=== PATIENT | male | born 1970 | race Caucasian/White ===

== ENCOUNTER 2016-04-01 12:07 | Emergency (ER) | payer OTHER ==
[2016-04-01 12:16] VITALS: TEMP 99.7; BMI 29.9
[2016-04-01] MEDS ORDERED: IBUPROFEN 400 MG TABLET (FP) PO ONE ×3 (12:20→14:09)
--- NOTE | 2016-04-01 13:58 | PDOC ---
History of Present Illness - General Chief Complaint: Abscess Boil Stated Complaint: BODY ACHES, FEVER Time Seen by Provider: 04/01/16 12:19 History Source: Patient Exam Limitations: No Limitations - History of Present Illness Initial Comments: CHIEF COMPLAINT: 45 y/o febrile male with no significant PMH c/o fever and pain under his right arm for the past 5 days. HISTORY OF PRESENT ILLNESS: The patient states he started feeling a bump under his right underarm 5 days ago and then began with a fever. He states he's been taking Tylenol every 6 hours for the fever. He denies chills, ALONZO, n/v/d, CP, SOB, drainage from affected area, redness/streaking of affected area. Vital signs on arrival are notable for pulse of 98 secondary to temp of 99.7. REVIEW OF SYSTEMS: GENERAL/CONSTITUTIONAL: + fever. No chills. No weakness. No weight change. HEAD, EYES, EARS, NOSE AND THROAT: No change in vision. No ear pain or discharge. No sore throat. CARDIOVASCULAR: No chest pain or shortness of breath. RESPIRATORY: No cough, wheezing, or hemoptysis. GASTROINTESTINAL: No nausea, vomiting, diarrhea, constipation. GENITOURINARY: No dysuria, frequency, or change in urination. MUSCULOSKELETAL: +painful swelling to right underarm. No neck or back pain. SKIN: No rash or easy bruising. NEUROLOGIC: No headache, vertigo, loss of consciousness, or loss of sensation. PHYSICAL EXAM: GENERAL: The patient is awake, alert, and fully oriented, in no acute distress. He is well appearing, ambulatory, in NAD or obvious discomfort. HEAD: Normal with no signs of trauma. ENT: Pupils equal, round and reactive to light, extraocular movements intact, sclera anicteric, conjunctiva clear. Neck supple. LUNGS: Clear to auscultation bilaterally. Normal excursion. No respiratory distress or use of accessory muscles. CV: RRR, S1/S2, no MRG. Cap refill < 2 sec. ABDOMEN: Soft, non-distended, non-tender even to deep palpation, no hepatomegaly or splenomegaly, no masses. EXTREMITIES: Normal range of motion, no edema. AXILLA: No obvious swelling or erythema to right axilla. Hard, painful abscess found under the skin of the right axilla. NEUROLOGICAL: Normal speech, normal gait. CN II-XII grossly intact. PSYCH: Normal mood, normal affect. SKIN: Warm, dry, normal turgor, no rashes or lesions noted. Past History - Past Medical History Allergies/Adverse Reactions: Allergies Allergy/AdvReac Type Severity Reaction Status Date / Time No Known Allergies Allergy Verified 04/01/16 12:16 Home Medications: Ambulatory Orders NK [No Known Home Medication] 04/01/16 Diabetes: Yes Liver Disease: Yes (ENLARGED) - Psycho/Social/Smoking Cessation Hx Anxiety: No Suicidal Ideation: No Smoking Status: Yes Smoking History: Never smoked Number of Cigarettes Smoked Daily: 0 Information on smoking cessation initiated: No *Physical Exam - Vital Signs Last Vital Signs Temp Pulse Resp BP Pulse Ox 99.7 F H 98 H 18 133/80 98 04/01/16 12:13 04/01/16 12:13 04/01/16 12:13 04/01/16 12:13 04/01/16 12:13 ED Treatment Course - LABORATORY CBC & Chemistry Diagram: 04/01/16 14:10 04/01/16 14:10 Medical Decision Making - Medical Decision Making A/P: 45 y/o febrile male with possible deep right axilla abscess. Plan is as follows: 1. Labs 2. PO motrin 3. Ultrasound right axilla Soft tissue ultrasound IMPRESSION: Several enlarged right axillary lymph nodes with a fatty hilum. The most prominent lymph node demonstrates a short axis diameter of approximately 2cm. Ordered CXR CXR IMPRESSION: No acute pathology. No signs of infiltrate or mass. The patient's vital signs have improved. Informed him of the results and diagnosis of viral illness. I informed him that the enlarged lymph nodes are unusual and he would need to f/u with his PCP, Dr. Stephanie Knapp, within 1 week for follow up. I informed him that it could indicate something more serious, such as cancer. He informed me he would definitely follow up. I suggested he continue taking tylenol for fever and add Motrin for pain. Instructed him to return to the ER with any worsening or concerning symptoms. The patient verbalizes understanding of all instructions, has no further questions and is awaiting discharge. *DC/Admit/Observation/Transfer Diagnosis at time of Disposition: Lymphadenitis, acute, Viral illness - Discharge Dispostion Disposition: HOME Condition at time of disposition: Improved - Referrals Referrals: Stephanie Knapp [Primary Care Provider] - (Please follow up this week) - Patient Instructions Printed Discharge Instructions: DI for Lymphadenopathy, DI for Viral Syndrome Additional Instructions: Discharge Instructions: -Take 500mg of Tylenol every 4 hours for fever -Take 600mg of Motrin every 6 hours for pain with food -Drink plenty of fluids -Get plenty of rest -Call your Dr. Knapp tomorrow to schedule follow up appointment as soon as possible -Your lymph nodes are enlarged, which is unusual for someone your age and could indicate something more serious such as cancer, so it is imperative you follow up with your doctor as soon as possible. Print Language: [place] - Post Discharge Activity Work/School Note: Back to Work
[2016-04-01 14:31] LABS: BASOPHIL 0.7 % (0-2.0); MCH 30.8 pg (25.7-33.7); MCHC 34.9 g/dl (32.0-35.9); MEAN CELL VOLUME 88.5 fl (80-96); MEAN PLT VOLUME 10.8 fl (7.5-11.1); NEUTROPHILS 66.5 % (42.8-82.8); PLATELET COUNT 90 K/MM3 (134-434); RDW 12.2 % (11.9-15.9); WHITE BLOOD COUNT 5.6 K/mm3 (4.0-10.0)
[2016-04-01 14:54] LABS: ANION GAP 12 (8-16); BILIRUBIN,TOTAL 0.6 mg/dL (0.2-1.0); CALCIUM 8.5 mg/dL (8.5-10.1); CO2 27 mmol/L (21-32); CREATININE 0.8 mg/dL (0.7-1.3); GLUCOSE,RANDOM 108 mg/dL (74-106); SGOT/AST 32 U/L (15-37); SGPT/ALT 63 U/L (12-78); TOT PROT 7.1 g/dl (6.4-8.2)
[2016-04-01 14:55] LABS: ALK PHOS 82 U/L (45-117)
[2016-04-01 17:27] VITALS: BP 103/65; PULSE 80
== END 2016-04-01 17:28 | disposition home or self-care (01) ==
LOC: JER 12:07 → JERFT 12:07 → JER 17:28
DX: L04.2 Acute lymphadenitis of upper limb (principal)
CPT/HCPCS: 36415; 71020-TC; 76882; 80053; 85025; 99282-25

== ENCOUNTER 2018-04-04 10:27 | Emergency (ER) | payer OTHER ==
[2018-04-04 10:36] VITALS: TEMP 97.8; BMI 32.4
--- NOTE | 2018-04-04 11:22 | PDOC ---
*Physical Exam - Vital Signs Last Vital Signs Temp Pulse Resp BP Pulse Ox 97.8 F 88 16 171/90 H 100 04/04/18 10:32 04/04/18 10:32 04/04/18 10:32 04/04/18 10:32 04/04/18 10:32 ED Treatment Course - LABORATORY CBC & Chemistry Diagram: 04/04/18 12:40 04/04/18 12:40 Medical Decision Making - Medical Decision Making 04/04/18 11:22 Pt seen by Midlevel Provider under my direct supervision Ancillary studies reviewed I agree with plan as outlined by Midlevel Provider *DC/Admit/Observation/Transfer Diagnosis at time of Disposition: Abdominal pain, Acute hemorrhoid - Discharge Dispostion Disposition: HOME Condition at time of disposition: Stable - Prescriptions Prescriptions: Polyethylene Glycol 3350 [Miralax (For Bowel Prep) -] 17 gm PO DAILY #1 bottle - Referrals Referrals: Kwesi Rahman MD [Primary Care Provider] - Jef Rivera MD [Staff Physician] - - Patient Instructions Printed Discharge Instructions: DI for Hemorrhoids, DI for Abdominal Pain-Adult Additional Instructions: Your work up for abdominal pain and blood in the stool was normal today Your CT of your abdomen was normal. You most likely have a hemorrhoid causing your bleeding Please follow up with both your primary care doctor and flow manager. A referral has been provided to you. Return to the ED for any new or worsening symptoms Print Language: FRISIAN - Post Discharge Activity Forms/Work/School Notes: Back to Work
--- NOTE | 2018-04-04 12:07 | PDOC ---
History of Present Illness - General Chief Complaint: Pain Stated Complaint: ABD PAIN Time Seen by Provider: 04/04/18 10:50 History Source: Patient Exam Limitations: No Limitations Past History - Travel Traveled outside of the country in the last 30 days: No Close contact w/someone who was outside of country & ill: No - Past Medical History Allergies/Adverse Reactions: Allergies Allergy/AdvReac Type Severity Reaction Status Date / Time No Known Allergies Allergy Verified 04/04/18 10:35 Home Medications: Ambulatory Orders NK [No Known Home Medication] 04/01/16 COPD: No Diabetes: Yes Liver Disease: Yes (ENLARGED) - Suicide/Smoking/Psychosocial Hx Smoking Status: Yes Smoking History: Unknown if ever smoked Number of Cigarettes Smoked Daily: 0 Hx Alcohol Use: No Drug/Substance Use Hx: No Review of Systems - Review of Systems Able to Perform ROS?: Yes Comments:: 04/04/18 15:18 CONSTITUTIONAL: Absent: fever, chills, diaphoresis, generalized weakness, malaise, loss of appetite HEENT: Absent: rhinorrhea, nasal congestion, throat pain, throat swelling, difficulty swallowing, mouth swelling, ear pain, eye pain, visual Changes CARDIOVASCULAR: Absent: chest pain, loss of consciousness, palpitations, irregular heart rate, peripheral edema RESPIRATORY: Absent: cough, shortness of breath, dyspnea with exertion, orthopnea, wheezing, stridor, hemoptysis GASTROINTESTINAL: Present: abdominal pain, blood in the stool Absent:abdominal distension, nausea , vomiting, diarrhea, constipation, melena, hematochezia GENITOURINARY: Absent: dysuria, frequency, urgency, hesitancy, hematuria, flank pain, genital pain MUSCULOSKELETAL: Absent: myalgia, arthralgia, joint swelling SKIN: Absent: rash, itching, pallor HEMATOLOGIC/IMMUNOLOGIC: Absent: easy bleeding, easy bruising, lymphadenopathy, frequent infections ENDOCRINE: Absent: unexplained weight gain, unexplained weight loss, heat intolerance, cold intolerance NEUROLOGIC: Absent: headache, focal weakness or paresthesias, dizziness, unsteady gait, seizure, mental status changes, bladder or bowel incontinence PSYCHIATRIC: Absent: anxiety, depression, suicidal or homicidal ideation, hallucinations. 04/04/18 15:18 Is the patient limited Polish proficient: No *Physical Exam - Vital Signs Last Vital Signs Temp Pulse Resp BP Pulse Ox 97.8 F 88 16 171/90 H 100 04/04/18 10:32 04/04/18 10:32 04/04/18 10:32 04/04/18 10:32 04/04/18 10:32 - Physical Exam Comments: 04/04/18 15:18 GENERAL: Well developed, well nourished. Awake and alert. No acute distress. HEENT: Normocephalic, atraumatic. PERRLA, EOMI. No conjunctival pallor. Sclera are non- icteric. Moist mucous membranes. Oropharynx is clear. NECK: Supple. Full ROM. No JVD. Carotid pulses 2+ and symmetric, without bruits. No thyromegaly. No lymphadenopathy. CARDIOVASCULAR: Regular rate and rhythm. No murmurs, rubs, or gallops. Distal pulses are 2+ and symmetric. PULMONARY: No evidence of respiratory distress. Lungs clear to auscultation bilaterally. No wheezing, rales or rhonchi. ABDOMINAL: TTP of the RLQ, suprapubic area. Soft. Non-tender. Non-distended. No rebound or guarding. No organomegaly. Normoactive bowel sounds. MUSCULOSKELETAL Normal range of motion at all joints. No bony deformities or tenderness. No CVA tenderness. EXTREMITIES: No cyanosis. No clubbing. No edema. No calf tenderness. SKIN: Warm and dry. Normal capillary refill. No rashes. No jaundice. NEUROLOGICAL: Alert, awake, appropriate. Cranial nerves 2-12 intact. No deficits to light touch and temperature in face, upper extremities and lower extremities. No motor deficits in the in face, upper extremities and lower extremities. Normoreflexic in the upper and lower extremities. Normal speech. Toes are down- going bilaterally. Gait is normal without ataxia. PSYCHIATRIC: Cooperative. Good eye contact. Appropriate mood and affect. Moderate Sedation - Procedure Monitoring Vital Signs: Procedure Monitoring Vital Signs Temperature 97.8 F 04/04/18 10:32 Pulse Rate 88 04/04/18 10:32 Respiratory Rate 16 04/04/18 10:32 Blood Pressure 171/90 H 04/04/18 10:32 O2 Sat by Pulse Oximetry (%) 100 04/04/18 10:32 ED Treatment Course - LABORATORY CBC & Chemistry Diagram: 04/04/18 12:40 04/04/18 12:40 *DC/Admit/Observation/Transfer Diagnosis at time of Disposition: Acute hemorrhoid Abdominal pain Qualifiers: Abdominal location: right lower quadrant Qualified Code(s): R10.31 - Right lower quadrant pain - Discharge Dispostion Disposition: HOME Condition at time of disposition: Stable Decision to Admit order: No - Referrals Referrals: Kwesi Rahman MD [Primary Care Provider] - Jef Rivera MD [Staff Physician] - - Patient Instructions Printed Discharge Instructions: DI for Abdominal Pain-Adult, DI for Hemorrhoids Additional Instructions: Your work up for abdominal pain and blood in the stool was normal today Your CT of your abdomen was normal. 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 A referral has been provided to you. Return to the ED for any new or worsening symptoms - Post Discharge Activity Forms/Work/School Notes: Back to Work
[2018-04-04 12:52] LABS: BASO % 0.7 % (0-2.0); EOS % 1.7 % (0-4.5); HEMATOCRIT 45.9 % (35.4-49); HEMOGLOBIN 16.5 GM/dL (11.7-16.9); LYMPH % 18.4 % (8-40); MCH 32.5 pg (25.7-33.7); MCHC 36.1 g/dl (32.0-35.9); MEAN CELL VOLUME 90.3 fl (80-96); MEAN PLT VOLUME 11.9 fl (7.5-11.1); MONO % 8.1 % (3.8-10.2); NEUT % 71.1 % (42.8-82.8); PLATELET COUNT 119 K/MM3 (134-434); RBC 5.08 M/mm3 (4.00-5.60); WHITE BLOOD COUNT 5.5 K/mm3 (4.0-10.0)
[2018-04-04 13:05] LABS: INR 1.08 (0.83-1.09); PROTHROMBIN TIME (PATIENT) 12.8 SEC (9.7-13.0)
[2018-04-04 13:20] LABS: ALBUMIN 4.6 g/dl (3.4-5.0); ALK PHOS 110 U/L (45-117); ANION GAP 5 MMOL/L (8-16); BILIRUBIN,TOTAL 0.4 mg/dL (0.2-1); BLOOD UREA NITROGEN 8 mg/dL (7-18); CHLORIDE 104 mmol/L (98-107); CO2 29 mmol/L (21-32); CREATININE 0.8 mg/dL (0.55-1.3); GLUCOSE,RANDOM 111 mg/dL (74-106); POTASSIUM 4.2 mmol/L (3.5-5.1); SGOT/AST 37 U/L (15-37); SGPT/ALT 80 U/L (13-61); SODIUM 137 mmol/L (136-145); TOT PROT 7.9 g/dl (6.4-8.2)
[2018-04-04 13:33] LABS: URINE APPEARANCE CLEAR; URINE BILIRUBIN NEGATIVE (<2.0 mg/dL); URINE COLOR LTYELLOW; URINE GLUCOSE (UA) NEGATIVE (NEGATIVE); URINE KETONE NEGATIVE (NEGATIVE); URINE LEUK ESTERASE NEGATIVE (NEGATIVE); URINE NITRITE NEGATIVE (NEGATIVE); URINE PROTEIN NEGATIVE (NEGATIVE); URINE UROBILINOGEN NEGATIVE mg/dL (0.2-1.0)
[2018-04-04 15:49] VITALS: BP 136/84; PULSE 60
== END 2018-04-04 15:53 | disposition home or self-care (01) ==
LOC: JER 10:27
DX: K64.9 Unspecified hemorrhoids (principal)
CPT/HCPCS: 36415; 74177-TC; 80053; 81003; 82272; 85025; 85610; 99281-25

== ENCOUNTER 2019-04-06 12:09 | Day surgery (SDC) | payer OTHER ==
[2019-04-06 13:38] VITALS: BMI 29.2
[2019-04-06 17:08] VITALS: TEMP 98.5
[2019-04-06 17:09] VITALS: PULSE 75
[2019-04-06 17:12] VITALS: BP 100/69
== END 2019-04-06 17:20 | disposition home or self-care (01) ==
LOC: JASU-ENDO 12:09
PROVIDERS: ATTEND Internal Medicine Gastroenterology
PROC: 0D7P8ZZ Dilation of Rectum, Via Natural or Artificial Opening Endoscopic (ICD-10-PCS; principal; 2019-04-06 13:45)
DX: K91.89 Other postprocedural complications and disorders of digestive system (principal); K62.4 Stenosis of anus and rectum; Z85.048 Personal history of other malignant neoplasm of rectum, rectosigmoid junction, and anus; Z92.3 Personal history of irradiation; Z80.0 Family history of malignant neoplasm of digestive organs

== ENCOUNTER 2020-05-08 15:35 | Inpatient (IN) | payer OTHER ==
[2020-05-08] MEDS ORDERED: ONDANSETRON 4 MG/2 ML VIAL IVPUSH ONE (17:06)
[2020-05-08] MEDS ORDERED: ACETAMINOPHEN 1000 MG/100 ML VIAL (NON FORMULARY) IVPB ONE (17:06)
[2020-05-08] MEDS ORDERED: SODIUM CHLORIDE 1,000 ML IV STA (17:06)
[2020-05-08] MEDS ORDERED: FAMOTIDINE 20 MG/50 ML IVPB 20 MG/50 ML MG IVPB ONE ×2 (17:06→17:29)
[2020-05-08] MEDS ORDERED: ONDANSETRON 4 MG/2 ML VIAL ONE (17:28)
[2020-05-08] MEDS ORDERED: ACETAMINOPHEN INJECTION 100 ML IVPB ONE (17:28)
[2020-05-08 18:04] LABS: BASO % 0.5 % (0-2.0); HEMATOCRIT 44.5 % (35.4-49); HEMOGLOBIN 15.4 GM/dL (11.7-16.9); LYMPH % 3.6 % (8-40); MCH 31.7 pg (25.7-33.7); MCHC 34.5 g/dl (32.0-35.9); MEAN CELL VOLUME 91.7 fl (80-96); MONO % 6.5 % (3.8-10.2); NEUT % 89.4 % (42.8-82.8); PLATELET COUNT 128 K/MM3 (134-434); RBC 4.85 M/mm3 (4.00-5.60); RDW 12.6 % (11.9-15.9); WHITE BLOOD COUNT 11.9 K/mm3 (4.0-10.0)
[2020-05-08 18:12] LABS: INR 1.15 (0.83-1.09); PROTHROMBIN TIME (PATIENT) 13.9 SEC (9.7-13.0)
[2020-05-08 18:25] LABS: CHLORIDE 106 mmol/L (98-107); POTASSIUM 3.7 mmol/L (3.5-5.1); SODIUM 138 mmol/L (136-145)
[2020-05-08 18:27] LABS: ALBUMIN 4.2 g/dl (3.4-5.0); CALCIUM 9.1 mg/dL (8.5-10.1)
[2020-05-08 18:28] LABS: ANION GAP 8 MMOL/L (8-16); BLOOD UREA NITROGEN 9.2 mg/dL (7-18); CO2 24 mmol/L (21-32); GLUCOSE,RANDOM 136 mg/dL (74-106)
[2020-05-08 18:31] LABS: CREATININE 0.6 mg/dL (0.55-1.3); SGOT/AST 21 U/L (15-37); SGPT/ALT 28 U/L (13-61)
[2020-05-08 18:32] LABS: BILIRUBIN,TOTAL 0.6 mg/dL (0.2-1); TOT PROT 7.5 g/dl (6.4-8.2)
[2020-05-08 18:33] LABS: ALK PHOS 102 U/L (45-117)
[2020-05-08 21:20] LABS: URINE APPEARANCE CLEAR; URINE BILIRUBIN NEGATIVE (NEGATIVE); URINE COLOR YELLOW; URINE GLUCOSE (UA) NEGATIVE (NEGATIVE); URINE KETONE TRACE (NEGATIVE); URINE LEUK ESTERASE NEGATIVE (NEGATIVE); URINE NITRITE NEGATIVE (NEGATIVE); URINE PROTEIN NEGATIVE (NEGATIVE); URINE UROBILINOGEN 0.2 mg/dL (0.2-1.0)
[2020-05-08 21:30] LABS: LIPASE 292 U/L (73-393)
[2020-05-08] MEDS ORDERED: CEFTRIAXONE 1 GM in DEXTROSE 5%-WATER - 50 ML IVPB ONE (22:30)
[2020-05-08] MEDS ORDERED: PANTOPRAZOLE SODIUM 40 MG VIAL IVPUSH ONE (22:30)
[2020-05-08] MEDS ORDERED: HEPARIN NA (PORCINE) 5,000 UNITS/ML 1ML VIAL SQ ONE (22:35)
[2020-05-08] MEDS ORDERED: morphine CARPU-JECT 4 MG/1 ML DISP.SYRIN IVPUSH ONE (22:42)
[2020-05-08] MEDS ORDERED: HEPARIN NA (PORCINE) 5,000 UNITS/ML 1ML VIAL ONE (22:44)
[2020-05-08] MEDS ORDERED: CEFTRIAXONE 1 GM/50 ML BAG ONE (22:44)
[2020-05-08] MEDS ORDERED: PANTOPRAZOLE SODIUM 40 MG/100 ML BAG IVPB ONE (22:44)
[2020-05-08] MEDS ORDERED: morphine SULFATE 4 MG/ML VIAL ONE (23:42)
[2020-05-08] MEDS ORDERED: ONDANSETRON 4 MG/2 ML VIAL IVPUSH PRN (23:56)
[2020-05-09] MEDS: DEXTROSE 5%-NORMAL SALINE 1,000 ML IV SCH (05:00)
[2020-05-09 06:49] LABS: BASO % 0.5 % (0-2.0); EOS % 0.8 % (0-4.5); HEMATOCRIT 38.3 % (35.4-49); HEMOGLOBIN 13.4 GM/dL (11.7-16.9); LYMPH % 12.2 % (8-40); MCH 32.2 pg (25.7-33.7); MCHC 34.9 g/dl (32.0-35.9); MEAN CELL VOLUME 92.3 fl (80-96); MEAN PLT VOLUME 11.5 fl (7.5-11.1); MONO % 12.5 % (3.8-10.2); PLATELET COUNT 106 K/MM3 (134-434); POTASSIUM 3.4 mmol/L (3.5-5.1); RBC 4.15 M/mm3 (4.00-5.60); RDW 12.8 % (11.9-15.9); WHITE BLOOD COUNT 4.5 K/mm3 (4.0-10.0)
[2020-05-09 06:57] LABS: BLOOD UREA NITROGEN 9.9 mg/dL (7-18); MAGNESIUM 2.3 mg/dL (1.8-2.4)
[2020-05-09 06:59] LABS: CREATININE 0.6 mg/dL (0.55-1.3)
[2020-05-09 07:00] LABS: PHOSPHOROUS 3.2 mg/dL (2.5-4.9)
[2020-05-09 07:01] LABS: BILIRUBIN,TOTAL 0.6 mg/dL (0.2-1)
[2020-05-09 07:06] LABS: ALBUMIN 3.4 g/dl (3.4-5.0)
[2020-05-09] MEDS ORDERED: ENOXAPARIN NA (PORCINE) 40 MG/0.4 ML DISP.SYRIN SQ ONE (10:51)
[2020-05-09] MEDS: ENOXAPARIN NA (PORCINE) 40 MG/0.4 ML DISP.SYRIN SQ SCH (10:52)
[2020-05-09 14:15] VITALS: BMI 29.9
[2020-05-09] MEDS: ACETAMINOPHEN 1000 MG/100 ML VIAL (NON FORMULARY) IVPB PRN ×2 (14:24→19:54)
[2020-05-10] MEDS ORDERED: ACETAMINOPHEN 325 MG TABLET (FP) ONE (01:16)
[2020-05-10 09:29] LABS: POTASSIUM 3.6 mmol/L (3.5-5.1)
[2020-05-10 09:38] LABS: BLOOD UREA NITROGEN 7.8 mg/dL (7-18); CALCIUM 8.3 mg/dL (8.5-10.1); MAGNESIUM 2.4 mg/dL (1.8-2.4)
[2020-05-10 09:41] LABS: CREATININE 0.6 mg/dL (0.55-1.3)
[2020-05-10 09:42] LABS: PHOSPHOROUS 2.7 mg/dL (2.5-4.9)
[2020-05-10] MEDS: DEXTROSE 5%-NORMAL SALINE 1,000 ML IV SCH ×2 (10:11→19:35)
[2020-05-10] MEDS: ENOXAPARIN NA (PORCINE) 40 MG/0.4 ML DISP.SYRIN SQ SCH (11:44)
[2020-05-10] MEDS ORDERED: POLYETHYLENE GLYCOL 3350 119 GM BTL PO ONE (19:38)
[2020-05-10] MEDS ORDERED: SIMETHICONE 40 MG/0.6 ML BOTTLE PO ONE (19:45)
[2020-05-11] MEDS: DEXTROSE 5%-NORMAL SALINE 1,000 ML IV SCH ×2 (07:52→10:07)
[2020-05-11] MEDS: ENOXAPARIN NA (PORCINE) 40 MG/0.4 ML DISP.SYRIN SQ SCH (10:07)
[2020-05-11] MEDS ORDERED: SIMETHICONE 80 MG TAB.CHEW (FP) PO ONE (20:21)
[2020-05-12 09:31] VITALS: BP 111/69; PULSE 67; TEMP 98.8
[2020-05-12] MEDS: ENOXAPARIN NA (PORCINE) 40 MG/0.4 ML DISP.SYRIN SQ SCH (10:30)
== END 2020-05-12 11:53 | disposition home or self-care (01) | DRG 247 ==
LOC: JER 15:35 → JERBED 22:50 → J5S 05-09 12:00
PROVIDERS: ADMIT Internal Medicine; ATTEND Internal Medicine
PROC: 0D9670Z Drainage of Stomach with Drainage Device, Via Natural or Artificial Opening (ICD-10-PCS; principal; 2020-05-08)
DX: K56.609 Unspecified intestinal obstruction, unspecified as to partial versus complete obstruction (principal); J98.11 Atelectasis; K76.0 Fatty (change of) liver, not elsewhere classified; I10 Essential (primary) hypertension; D69.6 Thrombocytopenia, unspecified; D72.829 Elevated white blood cell count, unspecified; R11.2 Nausea with vomiting, unspecified; R19.7 Diarrhea, unspecified; Z85.048 Personal history of other malignant neoplasm of rectum, rectosigmoid junction, and anus
CPT/HCPCS: 36415; 71045-TC-FY; 74019-TC-FY; 74177-TC; 80048; 80053; 81003; 82550; 83605; 83690; 83735; 84100; 84484; 85025; 85610; 86850; 86900; 86901; 87086; 93005; 93010; 99285-25; C9803; J0131; J1644; Q9967; U0003; U0005

== ENCOUNTER 2023-09-02 05:49 | Day surgery (SDC) | payer OTHER ==
[2023-08-30 10:59] VITALS: BMI 28.8
[2023-09-02] MEDS ORDERED: PROPOFOL 60 ML ONE (07:59)
[2023-09-02] MEDS ORDERED: MIDAZOLAM HCL 2 MG/2 ML SINGLE DOSE VIAL ONE (08:00)
[2023-09-02] MEDS ORDERED: ONDANSETRON 4 MG/2 ML VIAL ONE (08:01)
[2023-09-02] MEDS ORDERED: DEXAMETHASONE SOD PHOSPHATE 4 MG/1 ML VIAL ONE (08:01)
[2023-09-02] MEDS ORDERED: ceFAZolin SODIUM 1 GM VIAL ONE (08:01)
[2023-09-02] MEDS ORDERED: METOCLOPRAMIDE HCL INJECTION 10 MG/2 ML VIAL ONE (08:01)
[2023-09-02] MEDS ORDERED: HEPARIN NA (PORCINE) 5,000 UNITS/ML 1ML VIAL ONE (08:04)
[2023-09-02] MEDS ORDERED: SODIUM CHLORIDE 0.9% P/F 10 ML VIAL IJ ONE (08:07)
[2023-09-02] MEDS ORDERED: SUCCINYLCHOLINE CHLORIDE 200 MG/10 ML SYRINGE ONE (08:07)
[2023-09-02] MEDS: ceFAZolin SODIUM 1 GM VIAL IVPB ONE ×2 (08:30)
[2023-09-02] MEDS: HEPARIN NA (PORCINE) 5,000 UNITS/ML 1ML VIAL SQ ONE (08:32)
[2023-09-02] MEDS: BUPIVACAINE HCL/PF 0.25% (2.5MG/ML) 10 ML VIAL IJ ONE ×2 (08:32)
[2023-09-02] MEDS: HEPARIN NA (PORCINE) 1,000 UNITS/ML 10ML M-D VIAL SQ ONE ×2 (08:35→09:01)
[2023-09-02] MEDS ORDERED: oxyCODONE HCL 5 MG TABLET PO PRN (08:54)
[2023-09-02] MEDS ORDERED: ONDANSETRON 4 MG/2 ML VIAL IVPUSH PRN (08:54)
[2023-09-02] MEDS ORDERED: ACETAMINOPHEN INJECTION 100 ML IVPB ONE (08:55)
[2023-09-02] MEDS ORDERED: LACTATED RINGERS SOLUTION 1,000 ML IV SCH (09:00)
[2023-09-02 12:59] VITALS: RESP 16
[2023-09-02 13:26] VITALS: BP 113/71; PULSE 56; TEMP 97.8
== END 2023-09-02 13:59 | disposition home or self-care (01) ==
LOC: JASU-SURG 05:49
PROVIDERS: ATTEND Student in an Organized Health Care Education/Training Program
PROC: 02HV33Z Insertion of Infusion Device into Superior Vena Cava, Percutaneous Approach (ICD-10-PCS; 2023-09-02)
PROC: B518ZZA Fluoroscopy of Superior Vena Cava, Guidance (ICD-10-PCS; 2023-09-02)
PROC: 0JH60WZ Insertion of Totally Implantable Vascular Access Device into Chest Subcutaneous Tissue and Fascia, Open Approach (ICD-10-PCS; principal; 2023-09-02 08:00)
DX: C18.9 Malignant neoplasm of colon, unspecified (principal)
CPT/HCPCS: 36561; C1788; 71045-TC-FY; 76000-TC-FY; 94760; J0131; J1644

== ENCOUNTER 2023-09-03 09:32 | Day surgery (SDC) | payer OTHER ==
[2023-09-03 10:18] LABS: BASO % 0.3 % (0-2.0); EOS % 2.2 % (0-4.5); HEMATOCRIT 38.2 % (35.4-49); HEMOGLOBIN 13.3 GM/dL (11.7-16.9); MCH 31.4 pg (25.7-33.7); MCHC 34.7 g/dl (32.0-35.9); MEAN CELL VOLUME 90.3 fl (80-96); MEAN PLT VOLUME 11.1 fl (7.5-11.1); MONO % 8.9 % (3.8-10.2); NEUT % 70.6 % (42.8-82.8); PLATELET COUNT 104 10^3/uL (134-434); RBC 4.23 M/mm3 (4.00-5.60); RDW 12.6 % (11.9-15.9); WHITE BLOOD COUNT 5.1 K/mm3 (4.0-10.0)
[2023-09-03] MEDS: LIDOCAINE 2.5%/PRILOCAINE 2.5% (5 Gram/TUBE) TP ONE (11:00)
[2023-09-03 11:06] LABS: POTASSIUM 3.3 mmol/L (3.5-5.1)
[2023-09-03 11:09] LABS: ALBUMIN 3.8 g/dl (3.4-5.0); BLOOD UREA NITROGEN 9.3 mg/dL (7-18); CALCIUM 8.9 mg/dL (8.5-10.1); MAGNESIUM 2.4 mg/dL (1.8-2.4)
[2023-09-03 11:12] LABS: CREATININE 0.8 mg/dL (0.55-1.3)
[2023-09-03 11:14] LABS: BILIRUBIN,TOTAL 0.3 mg/dL (0.2-1); TOT PROT 6.7 g/dl (6.4-8.2)
[2023-09-03] MEDS: SODIUM CHLORIDE 250 ML IV ONE (11:20)
[2023-09-03] MEDS: PALONOSETRON HCL 0.25 MG/5 ML VIAL IVPUSH ONE (11:45)
[2023-09-03] MEDS: DEXAMETHASONE INJECTION 10 MG in SODIUM CHLORIDE 50 ML IVPB ONE (11:57)
[2023-09-03] MEDS: ATROPINE SO4 0.4 MG/1 ML VIAL IVPUSH ONE (12:31)
[2023-09-03] MEDS: DEXTROSE 5% IVPB ONE ×2 (12:34→12:52)
[2023-09-03] MEDS: WATER IVPB ONE ×2 (12:34→12:52)
[2023-09-03] MEDS: LEUCOVORIN CALCIUM IVPB ONE (12:34)
[2023-09-03] MEDS: IRINOTECAN HCL IVPB ONE (12:52)
[2023-09-03] MEDS: PORTA CATH FLUSH 10 ML IVPUSH PRN (15:02)
[2023-09-03] MEDS: FLUOROURACIL IV ONE (15:02)
[2023-09-03] MEDS: FLUOROURACIL 500 MG/10 ML VIAL IVPUSH ONE (15:02)
[2023-09-03] MEDS: SODIUM CHLORIDE IV ONE (15:02)
[2023-09-03 16:38] VITALS: BP 122/75; PULSE 72; RESP 20; TEMP 98.3
== END 2023-09-03 15:45 | disposition home or self-care (01) ==
LOC: JONCCHEMO 09:32 → J7W 09:46 → JONCCHEMO 15:45
PROVIDERS: ATTEND Internal Medicine Hematology & Oncology
DX: Z51.11 Encounter for antineoplastic chemotherapy (principal); C20 Malignant neoplasm of rectum
CPT/HCPCS: 36415; 80053; 83735; 85025; 96367; 96368; 96375; 96411; 96413; G0498; J1100; J2469; J9190; J9206

== ENCOUNTER 2023-09-05 12:11 | Day surgery (SDC) | payer OTHER ==
[~2023-09-05 12:11] MED LIST: POTASSIUM CHLORIDE TABS 20 MEQ TABLET.ER (FP) PO ONE
[2023-09-05] MEDS: DEXTROSE 5%-NORMAL SALINE 500 ML IV ONE (12:50)
[2023-09-05] MEDS: PROCHLORPERAZINE INJECTION 10 MG in SODIUM CHLORIDE 50 ML IVPB ONE (13:39)
[2023-09-05] MEDS: DEXAMETHASONE INJECTION 6 MG in SODIUM CHLORIDE 50 ML IVPUSH ONE (14:10)
[2023-09-05] MEDS: PORTA CATH FLUSH 10 ML IVPUSH PRN (14:40)
[2023-09-05] MEDS: PROCHLORPERAZINE INJECTION 10 MG/2 ML VIAL IVPB ONE (14:48)
[2023-09-05] MEDS: DEXAMETHASONE SOD PHOSPHATE 20 MG/5 ML VIAL IVPB ONE (14:48)
[2023-09-05 16:32] VITALS: BP 118/78; PULSE 84; RESP 16; TEMP 98.3
== END 2023-09-05 15:00 | disposition home or self-care (01) ==
LOC: JONCCHEMO 12:11 → J7W 12:12 → JONCCHEMO 15:00
PROVIDERS: ATTEND Internal Medicine Hematology & Oncology
PROC: 3E043GC Introduction of Other Therapeutic Substance into Central Vein, Percutaneous Approach (ICD-10-PCS; principal; 2023-09-05)
DX: C20 Malignant neoplasm of rectum (principal); C78.01 Secondary malignant neoplasm of right lung; C78.02 Secondary malignant neoplasm of left lung
CPT/HCPCS: 96365; J1100

== ENCOUNTER 2023-09-17 08:45 | Day surgery (SDC) | payer OTHER ==
[2023-09-17 09:51] LABS: BASO % 0.8 % (0-2.0); EOS % 3.5 % (0-4.5); HEMATOCRIT 38.1 % (35.4-49); HEMOGLOBIN 13.5 GM/dL (11.7-16.9); LYMPH % 20.6 % (8-40); MCH 31.8 pg (25.7-33.7); MCHC 35.5 g/dl (32.0-35.9); MEAN CELL VOLUME 89.6 fl (80-96); MEAN PLT VOLUME 9.8 fl (7.5-11.1); MONO % 7.9 % (3.8-10.2); NEUT % 67.2 % (42.8-82.8); PLATELET COUNT 127 10^3/uL (134-434); RBC 4.26 M/mm3 (4.00-5.60); RDW 12.8 % (11.9-15.9); WHITE BLOOD COUNT 3.3 K/mm3 (4.0-10.0)
[2023-09-17] MEDS: SODIUM CHLORIDE 250 ML IV ONE (10:02)
[2023-09-17 10:10] LABS: CHLORIDE 108 mmol/L (98-107); POTASSIUM 3.5 mmol/L (3.5-5.1); SODIUM 140 mmol/L (136-145)
[2023-09-17 10:15] LABS: CALCIUM 8.9 mg/dL (8.5-10.1)
[2023-09-17 10:16] LABS: ALBUMIN 3.7 g/dl (3.4-5.0); ANION GAP 6 mmol/L (4-13); BLOOD UREA NITROGEN 12.7 mg/dL (7-18); CO2 27 mmol/L (21-32); GLUCOSE,RANDOM 140 mg/dL (74-106); MAGNESIUM 2.4 mg/dL (1.8-2.4)
[2023-09-17 10:18] LABS: SGPT/ALT 38 U/L (13-61)
[2023-09-17 10:19] LABS: CREATININE 0.8 mg/dL (0.55-1.3); SGOT/AST 24 U/L (15-37)
[2023-09-17 10:20] LABS: BILIRUBIN,TOTAL 0.4 mg/dL (0.2-1); TOT PROT 6.8 g/dl (6.4-8.2)
[2023-09-17 10:21] LABS: ALK PHOS 124 U/L (45-117)
[2023-09-17] MEDS: DEXAMETHASONE INJECTION 10 MG in SODIUM CHLORIDE 50 ML IVPB ONE (11:06)
[2023-09-17] MEDS: PALONOSETRON HCL 0.25 MG/5 ML VIAL IVPUSH ONE (11:06)
[2023-09-17] MEDS: ATROPINE SO4 0.4 MG/1 ML VIAL IVPUSH ONE (11:40)
[2023-09-17] MEDS: DEXTROSE 5% IVPB ONE ×2 (11:43)
[2023-09-17] MEDS: WATER IVPB ONE ×2 (11:43)
[2023-09-17] MEDS: LEUCOVORIN CALCIUM IVPB ONE (11:43)
[2023-09-17] MEDS: IRINOTECAN HCL IVPB ONE (11:43)
[2023-09-17] MEDS ORDERED: PORTA CATH FLUSH 10 ML IVPUSH PRN (14:06)
[2023-09-17] MEDS: SODIUM CHLORIDE IV ONE (14:07)
[2023-09-17] MEDS: FLUOROURACIL 500 MG/10 ML VIAL IVPUSH ONE (14:07)
[2023-09-17] MEDS: FLUOROURACIL IV ONE (14:07)
[2023-09-17 15:33] VITALS: BP 136/71; PULSE 61; RESP 20; TEMP 98.6
== END 2023-09-17 14:35 | disposition home or self-care (01) ==
LOC: JONCCHEMO 08:45 → J7W 08:46 → JONCCHEMO 14:35
PROVIDERS: ATTEND Internal Medicine Hematology & Oncology
DX: Z12.11 Encounter for screening for malignant neoplasm of colon (principal); C20 Malignant neoplasm of rectum
CPT/HCPCS: 36415; 80053; 82607; 83735; 85025; 96367; 96368; 96375; 96411; 96413; G0498; J1100; J2469; J9190; J9206

== ENCOUNTER 2023-09-19 12:15 | Day surgery (SDC) | payer OTHER ==
[~2023-09-19 12:15] MED LIST changes: +LIDOCAINE 2.5%/PRILOCAINE 2.5% 30 GRAM TUBE TP ONE; -POTASSIUM CHLORIDE TABS 20 MEQ TABLET.ER (FP) PO ONE
[2023-09-19] MEDS: DEXTROSE 5%-NORMAL SALINE 500 ML IV ONE (12:30)
[2023-09-19] MEDS: PROCHLORPERAZINE INJECTION 10 MG in SODIUM CHLORIDE 50 ML IVPB ONE (12:31)
[2023-09-19] MEDS: DEXAMETHASONE INJECTION 6 MG in SODIUM CHLORIDE 50 ML IVPB ONE (13:52)
[2023-09-19] MEDS: PORTA CATH FLUSH 10 ML IVPUSH PRN (14:30)
[2023-09-19 16:17] VITALS: BP 116/66; PULSE 76; RESP 20; TEMP 98.4
== END 2023-09-19 14:55 | disposition home or self-care (01) ==
LOC: J7W 12:15 → JONCCHEMO 12:15
PROVIDERS: ATTEND Internal Medicine Hematology & Oncology
PROC: 3E013GC Introduction of Other Therapeutic Substance into Subcutaneous Tissue, Percutaneous Approach (ICD-10-PCS; principal; 2023-09-19)
DX: C20 Malignant neoplasm of rectum (principal); Z76.89 Persons encountering health services in other specified circumstances
CPT/HCPCS: 96365; J1100

== ENCOUNTER 2023-10-01 09:21 | Day surgery (SDC) | payer OTHER ==
[~2023-10-01 09:21] MED LIST changes: +CYANOCOBALAMIN (VITAMIN B-12) 1000 MCG/1 ML VIAL IM ONE; -LIDOCAINE 2.5%/PRILOCAINE 2.5% 30 GRAM TUBE TP ONE
[2023-10-01 09:50] LABS: BASO % 0.8 % (0-2.0); EOS % 3.5 % (0-4.5); HEMATOCRIT 38.1 % (35.4-49); HEMOGLOBIN 13.4 GM/dL (11.7-16.9); LYMPH % 20.5 % (8-40); MCH 31.5 pg (25.7-33.7); MCHC 35.1 g/dl (32.0-35.9); MEAN CELL VOLUME 89.8 fl (80-96); MEAN PLT VOLUME 9.3 fl (7.5-11.1); MONO % 9.5 % (3.8-10.2); NEUT % 65.7 % (42.8-82.8); PLATELET COUNT 105 10^3/uL (134-434); RBC 4.25 M/mm3 (4.00-5.60); RDW 13.2 % (11.9-15.9); WHITE BLOOD COUNT 3.1 K/mm3 (4.0-10.0)
[2023-10-01] MEDS: SODIUM CHLORIDE 250 ML IV ONE (10:00)
[2023-10-01 10:11] LABS: CALCIUM 8.7 mg/dL (8.5-10.1); CHLORIDE 110 mmol/L (98-107); POTASSIUM 3.6 mmol/L (3.5-5.1); SODIUM 142 mmol/L (136-145)
[2023-10-01 10:13] LABS: ALBUMIN 3.8 g/dl (3.4-5.0); ANION GAP 8 mmol/L (4-13); BLOOD UREA NITROGEN 10.6 mg/dL (7-18); CO2 24 mmol/L (21-32); GLUCOSE,RANDOM 147 mg/dL (74-106); MAGNESIUM 2.3 mg/dL (1.8-2.4)
[2023-10-01 10:15] LABS: CREATININE 0.8 mg/dL (0.55-1.3); SGOT/AST 24 U/L (15-37); SGPT/ALT 45 U/L (13-61)
[2023-10-01 10:17] LABS: BILIRUBIN,TOTAL 0.6 mg/dL (0.2-1); TOT PROT 6.6 g/dl (6.4-8.2)
[2023-10-01 10:18] LABS: ALK PHOS 112 U/L (45-117)
[2023-10-01] MEDS: DEXAMETHASONE INJECTION 10 MG in SODIUM CHLORIDE 50 ML IVPB ONE (11:20)
[2023-10-01] MEDS: PALONOSETRON HCL 0.25 MG/5 ML VIAL IVPUSH ONE (11:20)
[2023-10-01] MEDS: DEXAMETHASONE SODIUM PHOSPHATE IVPB ONE (12:10)
[2023-10-01] MEDS: SODIUM CHLORIDE IVPB ONE (12:10)
[2023-10-01] MEDS: ATROPINE SO4 0.4 MG/1 ML VIAL IVPUSH ONE (12:31)
[2023-10-01] MEDS: DEXTROSE 5% IVPB ONE ×2 (12:32→12:33)
[2023-10-01] MEDS: LEUCOVORIN CALCIUM IVPB ONE (12:32)
[2023-10-01] MEDS: WATER IVPB ONE ×2 (12:32→12:33)
[2023-10-01] MEDS: IRINOTECAN HCL IVPB ONE (12:33)
[2023-10-01] MEDS: FLUOROURACIL 500 MG/10 ML VIAL IVPUSH ONE (14:59)
[2023-10-01] MEDS: FLUOROURACIL 4,550 MG in SODIUM CHLORIDE 1 ML IV ONE (15:00)
[2023-10-01] MEDS: CYANOCOBALAMIN (VITAMIN B-12) 1000 MCG/1 ML VIAL IM ONE (15:13)
[2023-10-01 18:24] VITALS: BP 106/64; PULSE 78; RESP 20; TEMP 98.4
[2023-10-01] MEDS ORDERED: PORTA CATH FLUSH 10 ML IVPUSH PRN (18:25)
== END 2023-10-01 15:20 | disposition home or self-care (01) ==
LOC: JONCCHEMO 09:21 → J7W 09:22 → JONCCHEMO 15:20
PROVIDERS: ATTEND Internal Medicine Hematology & Oncology
PROC: 3E04305 Introduction of Other Antineoplastic into Central Vein, Percutaneous Approach (ICD-10-PCS; principal; 2023-10-01)
PROC: 3E013GC Introduction of Other Therapeutic Substance into Subcutaneous Tissue, Percutaneous Approach (ICD-10-PCS; 2023-10-01)
DX: Z51.11 Encounter for antineoplastic chemotherapy (principal); C20 Malignant neoplasm of rectum
CPT/HCPCS: 36415; 80053; 83036; 83735; 85025; 96368; 96372; 96375; 96411; 96413; 96417; G0498; J1100; J2469; J9190; J9206

== ENCOUNTER 2023-10-03 12:17 | Day surgery (SDC) | payer OTHER ==
[2023-10-03] MEDS: DEXTROSE 5%-NORMAL SALINE 500 ML IV ONE (12:16)
[2023-10-03] MEDS: DEXAMETHASONE INJECTION 6 MG in SODIUM CHLORIDE 50 ML IVPB ONE (12:17)
[2023-10-03] MEDS: PROCHLORPERAZINE INJECTION 10 MG in SODIUM CHLORIDE 50 ML IVPB ONE (12:36)
[2023-10-03] MEDS: PORTA CATH FLUSH 10 ML IVPUSH PRN (13:20)
[2023-10-03 16:45] VITALS: BP 117/68; PULSE 87; RESP 16; TEMP 98.1
== END 2023-10-03 14:40 | disposition home or self-care (01) ==
LOC: JONCCHEMO 12:17
PROVIDERS: ATTEND Internal Medicine Hematology & Oncology
PROC: 3E043GC Introduction of Other Therapeutic Substance into Central Vein, Percutaneous Approach (ICD-10-PCS; principal; 2023-10-03)
DX: C20 Malignant neoplasm of rectum (principal)
CPT/HCPCS: 96374; 96375; J1100

== ENCOUNTER 2023-10-15 08:53 | Day surgery (SDC) | payer OTHER ==
[2023-10-15] MEDS: SODIUM CHLORIDE 250 ML IV ONE (09:15)
[2023-10-15 09:44] LABS: BASO % 1.2 % (0-2.0); EOS % 3.4 % (0-4.5); HEMOGLOBIN 13.1 GM/dL (11.7-16.9); LYMPH % 21.8 % (8-40); MCH 31.8 pg (25.7-33.7); MCHC 35.4 g/dl (32.0-35.9); MEAN CELL VOLUME 89.8 fl (80-96); MEAN PLT VOLUME 9.5 fl (7.5-11.1); MONO % 8.3 % (3.8-10.2); NEUT % 65.3 % (42.8-82.8); PLATELET COUNT 102 10^3/uL (134-434); RBC 4.12 M/mm3 (4.00-5.60); WHITE BLOOD COUNT 2.8 K/mm3 (4.0-10.0)
[2023-10-15 10:06] LABS: POTASSIUM 3.6 mmol/L (3.5-5.1)
[2023-10-15 10:08] LABS: CALCIUM 8.6 mg/dL (8.5-10.1)
[2023-10-15 10:09] LABS: ALBUMIN 3.8 g/dl (3.4-5.0); MAGNESIUM 2.3 mg/dL (1.8-2.4)
[2023-10-15 10:13] LABS: CREATININE 0.9 mg/dL (0.55-1.3)
[2023-10-15 10:14] LABS: TOT PROT 6.6 g/dl (6.4-8.2)
[2023-10-15 10:34] LABS: BILIRUBIN,TOTAL 0.4 mg/dL (0.2-1)
[2023-10-15] MEDS: DEXAMETHASONE INJECTION 10 MG in SODIUM CHLORIDE 50 ML IVPB ONE (11:00)
[2023-10-15] MEDS: PALONOSETRON HCL 0.25 MG/5 ML VIAL IVPUSH ONE (11:15)
[2023-10-15] MEDS: DEXTROSE 5% IVPB ONE ×2 (11:45→11:52)
[2023-10-15] MEDS: WATER IVPB ONE ×2 (11:45→11:52)
[2023-10-15] MEDS: LEUCOVORIN CALCIUM IVPB ONE (11:45)
[2023-10-15] MEDS: IRINOTECAN HCL IVPB ONE (11:52)
[2023-10-15] MEDS: ATROPINE SO4 0.4 MG/1 ML VIAL IVPUSH ONE (11:52)
[2023-10-15] MEDS: FLUOROURACIL 500 MG/10 ML VIAL IVPUSH ONE (14:24)
[2023-10-15] MEDS: FLUOROURACIL 4,550 MG in SODIUM CHLORIDE 1 ML IV ONE (14:29)
[2023-10-15 18:05] VITALS: BP 126/75; PULSE 75; RESP 20; TEMP 98.1
[2023-10-15] MEDS ORDERED: PORTA CATH FLUSH 10 ML IVPUSH PRN (18:05)
== END 2023-10-15 14:45 | disposition home or self-care (01) ==
LOC: JONCCHEMO 08:53 → J7W 09:45 → JONCCHEMO 14:45
PROVIDERS: ATTEND Internal Medicine Hematology & Oncology
PROC: 3E04305 Introduction of Other Antineoplastic into Central Vein, Percutaneous Approach (ICD-10-PCS; principal; 2023-10-15)
PROC: 3E04305 Introduction of Other Antineoplastic into Central Vein, Percutaneous Approach (ICD-10-PCS; 2023-10-15)
PROC: 3E0437Z Introduction of Electrolytic and Water Balance Substance into Central Vein, Percutaneous Approach (ICD-10-PCS; 2023-10-15)
DX: Z51.11 Encounter for antineoplastic chemotherapy (principal); C20 Malignant neoplasm of rectum
CPT/HCPCS: 36415; 80053; 82962; 83735; 85025; 96367; 96368; 96372; 96375; 96413; G0498; J1100; J2469; J9190; J9206

== ENCOUNTER 2023-10-17 12:37 | Day surgery (SDC) | payer OTHER ==
[2023-10-17] MEDS: PROCHLORPERAZINE INJECTION 10 MG in SODIUM CHLORIDE 50 ML IVPB ONE (12:53)
[2023-10-17] MEDS: DEXTROSE 5%-NORMAL SALINE 500 ML IV ONE (12:55)
[2023-10-17] MEDS: DEXAMETHASONE INJECTION 4 MG in SODIUM CHLORIDE 50 ML IVPB ONE (13:58)
[2023-10-17] MEDS: PORTA CATH FLUSH 10 ML IVPUSH PRN (14:35)
[2023-10-17 17:17] VITALS: BP 108/61; PULSE 76; RESP 20; TEMP 98.4
== END 2023-10-17 14:45 | disposition home or self-care (01) ==
LOC: JONCCHEMO 12:37 → J7W 12:38 → JONCCHEMO 14:45
PROVIDERS: ATTEND Internal Medicine Hematology & Oncology
PROC: 3E033GC Introduction of Other Therapeutic Substance into Peripheral Vein, Percutaneous Approach (ICD-10-PCS; principal; 2023-10-17)
PROC: 3E0337Z Introduction of Electrolytic and Water Balance Substance into Peripheral Vein, Percutaneous Approach (ICD-10-PCS; 2023-10-17)
DX: C20 Malignant neoplasm of rectum (principal)
CPT/HCPCS: 96361; 96365; 96367; J1100

== ENCOUNTER 2023-10-29 13:09 | Day surgery (SDC) | payer OTHER ==
[2023-10-29 11:29] LABS: BASO % 0.6 % (0-2.0); EOS % 2.5 % (0-4.5); HEMATOCRIT 37.8 % (35.4-49); HEMOGLOBIN 13.2 GM/dL (11.7-16.9); LYMPH % 20.3 % (8-40); MCH 31.6 pg (25.7-33.7); MCHC 34.9 g/dl (32.0-35.9); MEAN CELL VOLUME 90.5 fl (80-96); MEAN PLT VOLUME 9.3 fl (7.5-11.1); MONO % 10.9 % (3.8-10.2); NEUT % 65.7 % (42.8-82.8); PLATELET COUNT 115 10^3/uL (134-434); RBC 4.18 M/mm3 (4.00-5.60); RDW 14.3 % (11.9-15.9); WHITE BLOOD COUNT 3.3 K/mm3 (4.0-10.0)
[2023-10-29 11:45] LABS: POTASSIUM 3.7 mmol/L (3.5-5.1)
[2023-10-29 11:47] LABS: ALBUMIN 3.8 g/dl (3.4-5.0); BLOOD UREA NITROGEN 11.9 mg/dL (7-18); CALCIUM 8.8 mg/dL (8.5-10.1); MAGNESIUM 2.5 mg/dL (1.8-2.4)
[2023-10-29 11:50] LABS: CREATININE 0.8 mg/dL (0.55-1.3)
[2023-10-29 11:52] LABS: BILIRUBIN,TOTAL 0.5 mg/dL (0.2-1); TOT PROT 6.5 g/dl (6.4-8.2)
[2023-10-29] MEDS: SODIUM CHLORIDE 250 ML IV ONE (12:00)
[2023-10-29] MEDS: DEXAMETHASONE INJECTION 10 MG in SODIUM CHLORIDE 50 ML IVPB ONE (12:32)
[2023-10-29] MEDS: PALONOSETRON HCL 0.25 MG/5 ML VIAL IVPUSH ONE (13:00)
[2023-10-29] MEDS: ONDANSETRON 4 MG/2 ML VIAL IVPB ONE (13:30)
[2023-10-29] MEDS: ATROPINE SO4 0.4 MG/1 ML VIAL SQ ONE (14:15)
[2023-10-29] MEDS: LEUCOVORIN CALCIUM IVPB ONE (14:19)
[2023-10-29] MEDS: DEXTROSE 5% IVPB ONE ×2 (14:19→14:25)
[2023-10-29] MEDS: WATER IVPB ONE ×2 (14:19→14:25)
[2023-10-29] MEDS: IRINOTECAN HCL IVPB ONE (14:25)
[2023-10-29] MEDS: FLUOROURACIL 500 MG/10 ML VIAL IVPUSH ONE (16:31)
[2023-10-29] MEDS: FLUOROURACIL CP ONE (16:35)
[2023-10-29] MEDS: SODIUM CHLORIDE CP ONE (16:35)
[2023-10-29] MEDS: PORTA CATH FLUSH 10 ML IVPUSH PRN (16:40)
[2023-10-29 16:49] VITALS: RESP 16; TEMP 98.3
[2023-10-29 16:59] VITALS: BP 130/78; PULSE 68
== END 2023-10-29 16:45 | disposition home or self-care (01) ==
LOC: J7W 13:09 → JONCCHEMO 13:09
PROVIDERS: ATTEND Internal Medicine Hematology & Oncology
PROC: 3E04305 Introduction of Other Antineoplastic into Central Vein, Percutaneous Approach (ICD-10-PCS; principal; 2023-10-29)
PROC: 3E0437Z Introduction of Electrolytic and Water Balance Substance into Central Vein, Percutaneous Approach (ICD-10-PCS; 2023-10-29)
DX: Z51.11 Encounter for antineoplastic chemotherapy (principal); C20 Malignant neoplasm of rectum
CPT/HCPCS: 36415; 80053; 82607; 83735; 85025; 96367; 96368; 96375; 96413; G0498; J1100; J2469; J9190; J9206

== ENCOUNTER 2023-10-31 14:36 | Day surgery (SDC) | payer OTHER ==
[2023-10-31] MEDS: CYANOCOBALAMIN (VITAMIN B-12) 1000 MCG/1 ML VIAL IM ONE (14:46)
[2023-10-31] MEDS: DEXAMETHASONE SODIUM PHOSPHATE 4 MG, ONDANSETRON INJECTION 8 MG in SODIUM CHLORIDE 100 ML IVPB ONE (14:46)
[2023-10-31] MEDS: DEXTROSE 5%-NORMAL SALINE 500 ML IV ONE (14:46)
[2023-10-31] MEDS: PORTA CATH FLUSH 10 ML IVPUSH PRN (16:50)
[2023-10-31 17:28] VITALS: RESP 18; TEMP 98.4
[2023-10-31 17:32] VITALS: BP 118/64; PULSE 78
== END 2023-10-31 16:50 | disposition home or self-care (01) ==
LOC: JONCCHEMO 14:36 → J7W 14:36 → JONCCHEMO 16:50
PROVIDERS: ATTEND Internal Medicine Hematology & Oncology
PROC: 3E033GC Introduction of Other Therapeutic Substance into Peripheral Vein, Percutaneous Approach (ICD-10-PCS; principal; 2023-10-31)
PROC: 3E0337Z Introduction of Electrolytic and Water Balance Substance into Peripheral Vein, Percutaneous Approach (ICD-10-PCS; 2023-10-31)
PROC: 3E023GC Introduction of Other Therapeutic Substance into Muscle, Percutaneous Approach (ICD-10-PCS; 2023-10-31)
DX: C20 Malignant neoplasm of rectum (principal)
CPT/HCPCS: 96361; 96365; 96372

== ENCOUNTER 2023-11-12 09:47 | Day surgery (SDC) | payer OTHER ==
[~2023-11-12 09:47] MED LIST changes: +ATROPINE SO4 0.4 MG/1 ML VIAL SQ ONE; -CYANOCOBALAMIN (VITAMIN B-12) 1000 MCG/1 ML VIAL IM ONE
[2023-11-12 10:56] LABS: EOS % 2.7 % (0-4.5); HEMATOCRIT 37.2 % (35.4-49); HEMOGLOBIN 12.6 GM/dL (11.7-16.9); LYMPH % 19.1 % (8-40); MCH 31.1 pg (25.7-33.7); MCHC 33.9 g/dl (32.0-35.9); MEAN CELL VOLUME 91.9 fl (80-96); MEAN PLT VOLUME 9.5 fl (7.5-11.1); MONO % 11.6 % (3.8-10.2); NEUT % 65.6 % (42.8-82.8); PLATELET COUNT 120 10^3/uL (134-434); RBC 4.04 M/mm3 (4.00-5.60); RDW 14.6 % (11.9-15.9); WHITE BLOOD COUNT 3.2 K/mm3 (4.0-10.0)
[2023-11-12 11:13] LABS: POTASSIUM 3.5 mmol/L (3.5-5.1)
[2023-11-12 11:16] LABS: ALBUMIN 3.7 g/dl (3.4-5.0); CALCIUM 8.4 mg/dL (8.5-10.1)
[2023-11-12 11:17] LABS: BLOOD UREA NITROGEN 9.1 mg/dL (7-18); MAGNESIUM 2.5 mg/dL (1.8-2.4)
[2023-11-12 11:20] LABS: CREATININE 0.8 mg/dL (0.55-1.3)
[2023-11-12 11:21] LABS: BILIRUBIN,TOTAL 0.5 mg/dL (0.2-1); TOT PROT 6.5 g/dl (6.4-8.2)
[2023-11-12] MEDS: SODIUM CHLORIDE 250 ML IV ONE (11:25)
[2023-11-12] MEDS: DEXAMETHASONE INJECTION 10 MG in SODIUM CHLORIDE 50 ML IVPB ONE (12:09)
[2023-11-12] MEDS: PALONOSETRON HCL 0.25 MG/5 ML VIAL IVPUSH ONE (13:01)
[2023-11-12] MEDS: ATROPINE SO4 0.4 MG/1 ML VIAL IVPUSH ONE (13:20)
[2023-11-12] MEDS: WATER IVPB ONE ×2 (13:23→13:46)
[2023-11-12] MEDS: DEXTROSE 5% IVPB ONE ×2 (13:23→13:46)
[2023-11-12] MEDS: LEUCOVORIN CALCIUM IVPB ONE (13:23)
[2023-11-12] MEDS: IRINOTECAN HCL IVPB ONE (13:46)
[2023-11-12] MEDS: FLUOROURACIL CP ONE (15:58)
[2023-11-12] MEDS: SODIUM CHLORIDE CP ONE (15:58)
[2023-11-12] MEDS: FLUOROURACIL 500 MG/10 ML VIAL IVPUSH ONE (15:58)
[2023-11-12 17:58] VITALS: RESP 18; TEMP 98.1
[2023-11-12 18:07] VITALS: BP 130/72; PULSE 67
[2023-11-12] MEDS ORDERED: PORTA CATH FLUSH 10 ML IVPUSH PRN (18:07)
== END 2023-11-12 16:15 | disposition home or self-care (01) ==
LOC: JONCCHEMO 09:47 → J7W 09:54 → JONCCHEMO 16:15
PROVIDERS: ATTEND Internal Medicine Hematology & Oncology
DX: Z51.11 Encounter for antineoplastic chemotherapy (principal); C20 Malignant neoplasm of rectum; C78.00 Secondary malignant neoplasm of unspecified lung
CPT/HCPCS: 36415; 80053; 83735; 85025; 96368; 96375; 96411; 96413; 96415; 96417; G0498; J1100; J9190; J9206

== ENCOUNTER 2023-11-14 14:12 | Day surgery (SDC) | payer OTHER ==
[2023-11-14] MEDS: PROCHLORPERAZINE INJECTION 10 MG in SODIUM CHLORIDE 50 ML IVPB ONE (14:12)
[2023-11-14] MEDS: DEXTROSE 5%-NORMAL SALINE 500 ML IV ONE (14:13)
[2023-11-14] MEDS: DEXAMETHASONE SODIUM PHOSPHATE 4 MG in SODIUM CHLORIDE 50 ML IVPB ONE (14:29)
[2023-11-14] MEDS: PORTA CATH FLUSH 10 ML IVPUSH PRN (16:15)
[2023-11-14 18:02] VITALS: RESP 20; TEMP 98.5
[2023-11-14 18:18] VITALS: BP 113/66; PULSE 68
== END 2023-11-14 16:30 | disposition home or self-care (01) ==
LOC: JONCCHEMO 14:12 → J7W 14:13 → JONCCHEMO 16:30
PROVIDERS: ATTEND Internal Medicine Hematology & Oncology
PROC: 3E043GC Introduction of Other Therapeutic Substance into Central Vein, Percutaneous Approach (ICD-10-PCS; principal; 2023-11-14)
DX: C20 Malignant neoplasm of rectum (principal); C78.00 Secondary malignant neoplasm of unspecified lung
CPT/HCPCS: 96374; 96375

== ENCOUNTER 2023-11-26 09:07 | Day surgery (SDC) | payer OTHER ==
[2023-11-26] MEDS: SODIUM CHLORIDE 250 ML IV ONE (09:25)
[2023-11-26 09:58] LABS: BASO % 1.2 % (0-2.0); EOS % 3.7 % (0-4.5); HEMATOCRIT 37.1 % (35.4-49); LYMPH % 20.4 % (8-40); MCHC 34.9 g/dl (32.0-35.9); MEAN CELL VOLUME 91.6 fl (80-96); MEAN PLT VOLUME 9.3 fl (7.5-11.1); MONO % 11.1 % (3.8-10.2); NEUT % 63.6 % (42.8-82.8); PLATELET COUNT 99 10^3/uL (134-434); RBC 4.05 M/mm3 (4.00-5.60); RDW 14.9 % (11.9-15.9); WHITE BLOOD COUNT 2.5 K/mm3 (4.0-10.0)
[2023-11-26 10:42] LABS: POTASSIUM 3.7 mmol/L (3.5-5.1)
[2023-11-26 10:48] LABS: ALBUMIN 3.6 g/dl (3.4-5.0); BLOOD UREA NITROGEN 10.2 mg/dL (7-18); CALCIUM 8.9 mg/dL (8.5-10.1); MAGNESIUM 2.5 mg/dL (1.8-2.4)
[2023-11-26 10:50] LABS: CREATININE 0.8 mg/dL (0.55-1.3)
[2023-11-26 10:52] LABS: BILIRUBIN,TOTAL 0.5 mg/dL (0.2-1); TOT PROT 6.4 g/dl (6.4-8.2)
[2023-11-26] MEDS: PALONOSETRON HCL 0.25 MG/5 ML VIAL IVPUSH ONE (11:19)
[2023-11-26] MEDS: DEXAMETHASONE INJECTION 10 MG in SODIUM CHLORIDE 50 ML IVPB ONE (11:25)
[2023-11-26] MEDS: DEXTROSE 5% IVPB ONE ×2 (12:19→12:21)
[2023-11-26] MEDS: LEUCOVORIN CALCIUM IVPB ONE (12:19)
[2023-11-26] MEDS: ATROPINE SO4 0.4 MG/1 ML VIAL IVPUSH ONE (12:19)
[2023-11-26] MEDS: WATER IVPB ONE ×2 (12:19→12:21)
[2023-11-26] MEDS: IRINOTECAN HCL IVPB ONE (12:21)
[2023-11-26] MEDS: INSULIN (NOVOLOG) ASPART 100 UNITS/ML 10ML VIAL SQ ONE (14:37)
[2023-11-26 14:50] VITALS: RESP 18; TEMP 98.3
[2023-11-26] MEDS: SODIUM CHLORIDE CP ONE (15:22)
[2023-11-26] MEDS: FLUOROURACIL CP ONE (15:22)
[2023-11-26] MEDS: FLUOROURACIL 500 MG/10 ML VIAL IVPUSH ONE (15:22)
[2023-11-26 15:49] VITALS: BP 132/73; PULSE 77
[2023-11-26] MEDS ORDERED: PORTA CATH FLUSH 10 ML IVPUSH PRN (15:49)
== END 2023-11-26 15:40 | disposition home or self-care (01) ==
LOC: JONCCHEMO 09:07
PROVIDERS: ATTEND Internal Medicine Hematology & Oncology
DX: Z51.11 Encounter for antineoplastic chemotherapy (principal); C20 Malignant neoplasm of rectum; C78.00 Secondary malignant neoplasm of unspecified lung
CPT/HCPCS: 36415; 80053; 83735; 85025; 96367; 96368; 96375; 96411; 96413; G0498; J1100; J9190; J9206

== ENCOUNTER 2023-11-28 13:25 | Day surgery (SDC) | payer OTHER ==
[2023-11-28] MEDS: DEXTROSE 5%-NORMAL SALINE 500 ML IV ONE (13:36)
[2023-11-28] MEDS: PROCHLORPERAZINE INJECTION 10 MG in SODIUM CHLORIDE 50 ML IVPB ONE (13:36)
[2023-11-28] MEDS: DEXTROSE 5% IVPB ONE (13:50)
[2023-11-28] MEDS: DEXAMETHASONE IVPB ONE (13:50)
[2023-11-28] MEDS: WATER IVPB ONE (13:50)
[2023-11-28] MEDS: PORTA CATH FLUSH 10 ML IVPUSH PRN (15:45)
[2023-11-28 17:00] VITALS: RESP 20; TEMP 98.2
[2023-11-28 17:44] VITALS: BP 113/74; PULSE 75
== END 2023-11-28 15:55 | disposition home or self-care (01) ==
LOC: J7W 13:25 → JONCCHEMO 13:25
PROVIDERS: ATTEND Internal Medicine Hematology & Oncology
PROC: 3E043GC Introduction of Other Therapeutic Substance into Central Vein, Percutaneous Approach (ICD-10-PCS; principal; 2023-11-28)
DX: C20 Malignant neoplasm of rectum (principal); C78.00 Secondary malignant neoplasm of unspecified lung
CPT/HCPCS: 96361; 96365; J1100

== ENCOUNTER 2023-12-10 08:47 | Day surgery (SDC) | payer OTHER ==
[2023-12-10] MEDS: SODIUM CHLORIDE 250 ML IV ONE (09:23)
[2023-12-10 09:33] LABS: BASO % 0.7 % (0-2.0); EOS % 3.9 % (0-4.5); HEMATOCRIT 38.4 % (35.4-49); LYMPH % 21.4 % (8-40); MCH 31.6 pg (25.7-33.7); MEAN PLT VOLUME 10.4 fl (7.5-11.1); PLATELET COUNT 103 10^3/uL (134-434); RBC 4.13 M/mm3 (4.00-5.60); RDW 14.5 % (11.9-15.9); WHITE BLOOD COUNT 2.6 K/mm3 (4.0-10.0)
[2023-12-10 09:53] LABS: POTASSIUM 3.5 mmol/L (3.5-5.1)
[2023-12-10 09:56] LABS: CALCIUM 8.6 mg/dL (8.5-10.1)
[2023-12-10 09:57] LABS: ALBUMIN 3.8 g/dl (3.4-5.0); BLOOD UREA NITROGEN 8.4 mg/dL (7-18); MAGNESIUM 2.4 mg/dL (1.8-2.4)
[2023-12-10 10:00] LABS: CREATININE 0.9 mg/dL (0.55-1.3)
[2023-12-10 10:01] LABS: BILIRUBIN,TOTAL 0.5 mg/dL (0.2-1); TOT PROT 6.4 g/dl (6.4-8.2)
[2023-12-10] MEDS: DEXAMETHASONE INJECTION 10 MG in SODIUM CHLORIDE 50 ML IVPB ONE (10:25)
[2023-12-10] MEDS: PROCHLORPERAZINE MALEATE 5 MG TABLET PO ONE (10:27)
[2023-12-10] MEDS: PALONOSETRON HCL 0.25 MG/5 ML VIAL IVPUSH ONE (10:29)
[2023-12-10] MEDS: LORazepam 2 MG/ML SDV VIAL IVPUSH ONE (11:04)
[2023-12-10] MEDS ORDERED: INSULIN ASPART SLIDING SCALE (NOVOLOG) 1 VIAL SQ ONE (11:12)
[2023-12-10] MEDS: INSULIN (NOVOLOG) ASPART 100 UNITS/ML 10ML VIAL SQ ONE (11:14)
[2023-12-10] MEDS: DEXTROSE 5% IVPB ONE ×2 (11:16→11:21)
[2023-12-10] MEDS: LEUCOVORIN CALCIUM IVPB ONE (11:16)
[2023-12-10] MEDS: WATER IVPB ONE ×2 (11:16→11:21)
[2023-12-10] MEDS: ATROPINE SO4 0.4 MG/1 ML VIAL IVPUSH ONE (11:20)
[2023-12-10] MEDS: IRINOTECAN HCL IVPB ONE (11:21)
[2023-12-10] MEDS: FLUOROURACIL 500 MG/10 ML VIAL IVPUSH ONE (15:19)
[2023-12-10] MEDS: SODIUM CHLORIDE CP ONE (15:33)
[2023-12-10] MEDS: FLUOROURACIL CP ONE (15:33)
[2023-12-10 18:00] VITALS: RESP 18; TEMP 98.4
[2023-12-10 18:14] VITALS: BP 133/81; PULSE 81
== END 2023-12-10 16:00 | disposition home or self-care (01) ==
LOC: JONCCHEMO 08:47 → J7W 08:53 → JONCCHEMO 16:00
PROVIDERS: ATTEND Internal Medicine Hematology & Oncology
DX: Z51.11 Encounter for antineoplastic chemotherapy (principal); C20 Malignant neoplasm of rectum
CPT/HCPCS: 36415; 80053; 82378; 82962; 83036; 83735; 85025; 96368; 96375; 96411; 96413; G0498; J1100; J9190; J9206

== ENCOUNTER 2023-12-12 13:42 | Day surgery (SDC) | payer OTHER ==
[2023-12-12] MEDS: DEXTROSE 5%-NORMAL SALINE 500 ML IV ONE (13:34)
[2023-12-12] MEDS: DEXAMETHASONE SODIUM PHOSPHATE 4 MG in DEXTROSE 5%-WATER - 50 ML IVPB ONE (13:37)
[2023-12-12] MEDS: PROCHLORPERAZINE IVPB ONE (14:00)
[2023-12-12] MEDS: WATER IVPB ONE (14:00)
[2023-12-12] MEDS: DEXTROSE 5% IVPB ONE (14:00)
[2023-12-12] MEDS: PORTA CATH FLUSH 10 ML IVPUSH PRN (15:35)
[2023-12-12 16:08] VITALS: RESP 18; TEMP 98.7
[2023-12-12 16:14] VITALS: BP 125/70; PULSE 73
== END 2023-12-12 15:50 | disposition home or self-care (01) ==
LOC: J7W 13:42 → JONCCHEMO 13:42
PROVIDERS: ATTEND Internal Medicine Hematology & Oncology
PROC: 3E0333Z Introduction of Anti-inflammatory into Peripheral Vein, Percutaneous Approach (ICD-10-PCS; principal; 2023-12-12)
PROC: 3E033GC Introduction of Other Therapeutic Substance into Peripheral Vein, Percutaneous Approach (ICD-10-PCS; 2023-12-12)
DX: C20 Malignant neoplasm of rectum (principal); Z76.89 Persons encountering health services in other specified circumstances
CPT/HCPCS: 96365; 96367

== ENCOUNTER 2023-12-24 09:36 | Day surgery (SDC) | payer OTHER ==
[2023-12-24] MEDS ORDERED: LORazepam 2 MG/ML SDV VIAL IVPUSH ONE (10:00)
[2023-12-24 10:16] LABS: BASO % 0.9 % (0-2.0); EOS % 3.4 % (0-4.5); HEMATOCRIT 38.1 % (35.4-49); HEMOGLOBIN 13.1 GM/dL (11.7-16.9); LYMPH % 18.3 % (8-40); MCH 31.9 pg (25.7-33.7); MCHC 34.4 g/dl (32.0-35.9); MEAN CELL VOLUME 92.7 fl (80-96); MEAN PLT VOLUME 9.5 fl (7.5-11.1); MONO % 11.2 % (3.8-10.2); NEUT % 66.2 % (42.8-82.8); PLATELET COUNT 114 10^3/uL (134-434); RBC 4.12 M/mm3 (4.00-5.60); RDW 14.5 % (11.9-15.9); WHITE BLOOD COUNT 3.3 K/mm3 (4.0-10.0)
[2023-12-24] MEDS: SODIUM CHLORIDE 250 ML IV ONE (10:30)
[2023-12-24 10:44] LABS: POTASSIUM 3.9 mmol/L (3.5-5.1)
[2023-12-24 10:53] LABS: CALCIUM 9.1 mg/dL (8.5-10.1)
[2023-12-24 10:54] LABS: ALBUMIN 3.9 g/dl (3.4-5.0); BLOOD UREA NITROGEN 8.9 mg/dL (7-18); MAGNESIUM 2.5 mg/dL (1.8-2.4)
[2023-12-24 10:57] LABS: CREATININE 0.8 mg/dL (0.55-1.3)
[2023-12-24 10:59] LABS: BILIRUBIN,TOTAL 0.5 mg/dL (0.2-1); TOT PROT 6.6 g/dl (6.4-8.2)
[2023-12-24] MEDS: DEXAMETHASONE INJECTION 10 MG in SODIUM CHLORIDE 50 ML IVPB ONE (12:01)
[2023-12-24] MEDS: PALONOSETRON HCL 0.25 MG/5 ML VIAL IVPUSH ONE (12:02)
[2023-12-24] MEDS: LORazepam 2 MG/ML SDV VIAL IVPUSH ONE (12:36)
[2023-12-24] MEDS: ATROPINE SO4 0.4 MG/1 ML VIAL IVPUSH ONE (12:56)
[2023-12-24] MEDS: LEUCOVORIN IVPB ONE (13:05)
[2023-12-24] MEDS: WATER IVPB ONE ×2 (13:05→13:06)
[2023-12-24] MEDS: DEXTROSE 5% IVPB ONE ×2 (13:05→13:06)
[2023-12-24] MEDS: IRINOTECAN HCL IVPB ONE (13:06)
[2023-12-24] MEDS: SODIUM CHLORIDE CP ONE (15:37)
[2023-12-24] MEDS: FLUOROURACIL CP ONE (15:37)
[2023-12-24] MEDS: FLUOROURACIL 500 MG/10 ML VIAL IVPUSH ONE (15:37)
[2023-12-24 15:57] VITALS: PULSE 83; RESP 18; TEMP 98.2
[2023-12-24 16:15] VITALS: BP 126/77
== END 2023-12-24 16:00 | disposition home or self-care (01) ==
LOC: JONCCHEMO 09:36 → J7W 09:37 → JONCCHEMO 16:00
PROVIDERS: ATTEND Internal Medicine Hematology & Oncology
DX: Z51.11 Encounter for antineoplastic chemotherapy (principal); C20 Malignant neoplasm of rectum; C78.00 Secondary malignant neoplasm of unspecified lung
CPT/HCPCS: 36415; 80053; 82607; 83735; 85025; 96368; 96375; 96411; 96413; G0498; J1100; J9190; J9206

== ENCOUNTER 2023-12-26 13:45 | Day surgery (SDC) | payer OTHER ==
[2023-12-26] MEDS: DEXTROSE 5%-NORMAL SALINE 500 ML IV ONE (13:44)
[~2023-12-26 13:45] MED LIST changes: -ATROPINE SO4 0.4 MG/1 ML VIAL SQ ONE; +LORazepam 2 MG/ML SDV VIAL IVPUSH ONE
[2023-12-26] MEDS: LORazepam 2 MG/ML SDV VIAL IVPUSH ONE (14:15)
[2023-12-26] MEDS: DEXAMETHASONE SODIUM PHOSPHATE 4 MG in DEXTROSE 5%-WATER - 50 ML IVPB ONE (14:40)
[2023-12-26 16:22] VITALS: RESP 18; TEMP 98.8
[2023-12-26 16:40] VITALS: BP 134/82; PULSE 76
[2023-12-26] MEDS: PORTA CATH FLUSH 10 ML IVPUSH PRN (16:43)
== END 2023-12-26 16:00 | disposition home or self-care (01) ==
LOC: JONCCHEMO 13:45 → J7W 13:53 → JONCCHEMO 16:00
PROVIDERS: ATTEND Internal Medicine Hematology & Oncology
PROC: 3E0437Z Introduction of Electrolytic and Water Balance Substance into Central Vein, Percutaneous Approach (ICD-10-PCS; principal; 2023-12-26)
DX: C20 Malignant neoplasm of rectum (principal); Z76.89 Persons encountering health services in other specified circumstances
CPT/HCPCS: 96360; 96361

== ENCOUNTER 2024-01-06 09:30 | Day surgery (SDC) | payer OTHER ==
[2024-01-06 09:47] LABS: EOS % 3.3 % (0-4.5); HEMATOCRIT 38.5 % (35.4-49); HEMOGLOBIN 13.1 GM/dL (11.7-16.9); LYMPH % 22.2 % (8-40); MCH 31.6 pg (25.7-33.7); MEAN PLT VOLUME 9.7 fl (7.5-11.1); MONO % 9.9 % (3.8-10.2); NEUT % 63.6 % (42.8-82.8); PLATELET COUNT 126 10^3/uL (134-434); RBC 4.15 M/mm3 (4.00-5.60); RDW 14.4 % (11.9-15.9); WHITE BLOOD COUNT 2.6 K/mm3 (4.0-10.0)
[2024-01-06] MEDS: SODIUM CHLORIDE 250 ML IV ONE (10:00)
[2024-01-06 10:13] LABS: POTASSIUM 3.6 mmol/L (3.5-5.1)
[2024-01-06 10:15] LABS: ALBUMIN 3.8 g/dl (3.4-5.0); CALCIUM 8.8 mg/dL (8.5-10.1)
[2024-01-06 10:16] LABS: BLOOD UREA NITROGEN 11.2 mg/dL (7-18); MAGNESIUM 2.4 mg/dL (1.8-2.4)
[2024-01-06 10:19] LABS: CREATININE 0.9 mg/dL (0.55-1.3)
[2024-01-06 10:20] LABS: BILIRUBIN,TOTAL 0.5 mg/dL (0.2-1); TOT PROT 6.4 g/dl (6.4-8.2)
[2024-01-06] MEDS: DEXAMETHASONE INJECTION 10 MG in SODIUM CHLORIDE 50 ML IVPB ONE (11:14)
[2024-01-06] MEDS: PALONOSETRON HCL 0.25 MG/5 ML VIAL IVPUSH ONE (11:15)
[2024-01-06] MEDS: LORazepam 2 MG/ML SDV VIAL IVPUSH ONE (11:22)
[2024-01-06] MEDS: ATROPINE SO4 0.4 MG/1 ML VIAL IVPUSH ONE (11:59)
[2024-01-06] MEDS: WATER IVPB ONE ×2 (12:01→12:03)
[2024-01-06] MEDS: DEXTROSE 5% IVPB ONE ×2 (12:01→12:03)
[2024-01-06] MEDS: LEUCOVORIN IVPB ONE (12:01)
[2024-01-06] MEDS: IRINOTECAN HCL IVPB ONE (12:03)
[2024-01-06] MEDS: INSULIN (NOVOLOG) ASPART 100 UNITS/ML 10ML VIAL SQ ONE (12:34)
[2024-01-06] MEDS: FLUOROURACIL 500 MG/10 ML VIAL IVPUSH ONE (14:24)
[2024-01-06] MEDS: FLUOROURACIL CP ONE (14:25)
[2024-01-06] MEDS: SODIUM CHLORIDE CP ONE (14:25)
[2024-01-06 16:43] VITALS: BP 130/77; PULSE 91; RESP 18; TEMP 98.7
== END 2024-01-06 14:45 | disposition home or self-care (01) ==
LOC: JONCCHEMO 09:30
PROVIDERS: ATTEND Internal Medicine Hematology & Oncology
PROC: 3E04305 Introduction of Other Antineoplastic into Central Vein, Percutaneous Approach (ICD-10-PCS; principal; 2024-01-06)
PROC: 3E043GC Introduction of Other Therapeutic Substance into Central Vein, Percutaneous Approach (ICD-10-PCS; 2024-01-06)
PROC: 3E013VG Introduction of Insulin into Subcutaneous Tissue, Percutaneous Approach (ICD-10-PCS; 2024-01-06)
DX: Z51.11 Encounter for antineoplastic chemotherapy (principal); C20 Malignant neoplasm of rectum; C78.00 Secondary malignant neoplasm of unspecified lung
CPT/HCPCS: 36415; 80053; 82378; 83735; 85025; 96372; 96374; 96375; 96413; 96415; G0498; J1100; J9190; J9206

== ENCOUNTER 2024-01-08 12:45 | Day surgery (SDC) | payer OTHER ==
[2024-01-08] MEDS: DEXAMETHASONE SODIUM PHOSPHATE 4 MG in SODIUM CHLORIDE 50 ML IVPB ONE (12:47)
[2024-01-08] MEDS: DEXTROSE 5%-NORMAL SALINE 500 ML IV ONE (12:47)
[2024-01-08] MEDS: LORazepam 2 MG/ML SDV VIAL IVPUSH ONE (12:48)
[2024-01-08] MEDS: PORTA CATH FLUSH 10 ML IVPUSH PRN (14:50)
[2024-01-08 18:48] VITALS: RESP 20; TEMP 98.1
[2024-01-08 18:52] VITALS: BP 129/79; PULSE 80
== END 2024-01-08 14:55 | disposition home or self-care (01) ==
LOC: JONCCHEMO 12:45 → J7W 12:45 → JONCCHEMO 14:55
PROVIDERS: ATTEND Internal Medicine Hematology & Oncology
PROC: 3E033GC Introduction of Other Therapeutic Substance into Peripheral Vein, Percutaneous Approach (ICD-10-PCS; principal; 2024-01-08)
PROC: 3E0337Z Introduction of Electrolytic and Water Balance Substance into Peripheral Vein, Percutaneous Approach (ICD-10-PCS; 2024-01-08)
DX: Z76.89 Persons encountering health services in other specified circumstances (principal); C20 Malignant neoplasm of rectum
CPT/HCPCS: 96361; 96374

== ENCOUNTER 2024-01-21 08:50 | Day surgery (SDC) | payer OTHER ==
[2024-01-21] MEDS: SODIUM CHLORIDE 250 ML IV ONE (09:18)
[2024-01-21 09:34] LABS: BASO % 0.9 % (0-2.0); EOS % 3.4 % (0-4.5); HEMATOCRIT 38.9 % (35.4-49); HEMOGLOBIN 13.5 GM/dL (11.7-16.9); LYMPH % 18.4 % (8-40); MCHC 34.7 g/dl (32.0-35.9); MEAN CELL VOLUME 92.1 fl (80-96); MONO % 11.1 % (3.8-10.2); NEUT % 66.2 % (42.8-82.8); PLATELET COUNT 109 10^3/uL (134-434); RBC 4.23 M/mm3 (4.00-5.60); RDW 14.1 % (11.9-15.9); WHITE BLOOD COUNT 2.9 K/mm3 (4.0-10.0)
[2024-01-21 09:49] LABS: POTASSIUM 3.6 mmol/L (3.5-5.1)
[2024-01-21 09:51] LABS: ALBUMIN 3.7 g/dl (3.4-5.0); BLOOD UREA NITROGEN 9.1 mg/dL (7-18); MAGNESIUM 2.4 mg/dL (1.8-2.4)
[2024-01-21 09:55] LABS: CREATININE 0.9 mg/dL (0.55-1.3)
[2024-01-21 09:57] LABS: BILIRUBIN,TOTAL 0.5 mg/dL (0.2-1); TOT PROT 6.7 g/dl (6.4-8.2)
[2024-01-21] MEDS: FOSAPREPITANT DIMEGLUMINE 150 MG in SODIUM CHLORIDE 145 ML IVPB ONE (10:29)
[2024-01-21] MEDS: DEXAMETHASONE INJECTION 10 MG in SODIUM CHLORIDE 50 ML IVPB ONE (11:08)
[2024-01-21] MEDS: PALONOSETRON HCL 0.25 MG/5 ML VIAL IVPUSH ONE (11:09)
[2024-01-21] MEDS: ATROPINE SO4 0.4 MG/1 ML VIAL IVPUSH ONE (11:35)
[2024-01-21] MEDS: LEUCOVORIN CALCIUM IVPB ONE (11:38)
[2024-01-21] MEDS: WATER IVPB ONE ×2 (11:38→11:43)
[2024-01-21] MEDS: DEXTROSE 5% IVPB ONE ×2 (11:38→11:43)
[2024-01-21] MEDS: IRINOTECAN HCL IVPB ONE (11:43)
[2024-01-21] MEDS: INSULIN (NOVOLOG) ASPART 100 UNITS/ML 10ML VIAL SQ ONE ×2 (14:12→14:13)
[2024-01-21] MEDS ORDERED: INSULIN ASPART SLIDING SCALE (NOVOLOG) 1 VIAL SQ ONE (14:12)
[2024-01-21] MEDS: PORTA CATH FLUSH 10 ML IVPUSH PRN (14:18)
[2024-01-21] MEDS: FLUOROURACIL CP ONE (14:18)
[2024-01-21] MEDS: FLUOROURACIL 500 MG/10 ML VIAL IVPUSH ONE (14:18)
[2024-01-21] MEDS: SODIUM CHLORIDE CP ONE (14:18)
[2024-01-21 15:43] VITALS: BP 141/85; PULSE 102; RESP 18; TEMP 98.5
== END 2024-01-21 14:30 | disposition home or self-care (01) ==
LOC: J7W 08:50 → JONCCHEMO 08:50
PROVIDERS: ATTEND Internal Medicine Hematology & Oncology
DX: Z51.11 Encounter for antineoplastic chemotherapy (principal); C20 Malignant neoplasm of rectum
CPT/HCPCS: 36415; 80053; 82962; 83036; 83735; 85025; 96367; 96368; 96375; 96411; 96413; G0498; J1100; J1453; J9190; J9206

== ENCOUNTER 2024-01-23 12:30 | Day surgery (SDC) | payer OTHER ==
[2024-01-23] MEDS: DEXTROSE 5%-NORMAL SALINE 500 ML IV ONE (12:41)
[2024-01-23] MEDS: DEXAMETHASONE SODIUM PHOSPHATE 4 MG in SODIUM CHLORIDE 50 ML IVPB ONE (12:45)
[2024-01-23] MEDS: LORazepam 2 MG/ML SDV VIAL IVPUSH ONE (12:45)
[2024-01-23] MEDS: PORTA CATH FLUSH 10 ML IVPUSH PRN (14:43)
[2024-01-23 17:41] VITALS: BP 122/77; PULSE 78; RESP 20; TEMP 98
== END 2024-01-23 16:00 | disposition home or self-care (01) ==
LOC: JONCCHEMO 12:30
PROVIDERS: ATTEND Internal Medicine Hematology & Oncology
PROC: 3E043GC Introduction of Other Therapeutic Substance into Central Vein, Percutaneous Approach (ICD-10-PCS; principal; 2024-01-23)
DX: C20 Malignant neoplasm of rectum (principal)
CPT/HCPCS: 96365

== ENCOUNTER 2024-02-11 10:52 | Day surgery (SDC) | payer OTHER ==
[2024-02-11] MEDS ORDERED: OLANZapine 10 MG TABLET PO ONE (11:00)
[2024-02-11] MEDS: LIDOCAINE 2.5%/PRILOCAINE 2.5% 30 GRAM TUBE TP ONE (11:20)
[2024-02-11] MEDS: SODIUM CHLORIDE 250 ML IV ONE (11:30)
[2024-02-11 11:32] LABS: BASO % 0.9 % (0-2.0); EOS % 2.5 % (0-4.5); HEMATOCRIT 37.5 % (35.4-49); HEMOGLOBIN 13.1 GM/dL (11.7-16.9); LYMPH % 20.4 % (8-40); MCH 32.2 pg (25.7-33.7); MCHC 34.9 g/dl (32.0-35.9); MEAN CELL VOLUME 92.3 fl (80-96); MEAN PLT VOLUME 10.8 fl (7.5-11.1); MONO % 14.7 % (3.8-10.2); NEUT % 61.5 % (42.8-82.8); PLATELET COUNT 115 10^3/uL (134-434); RBC 4.06 M/mm3 (4.00-5.60); RDW 13.7 % (11.9-15.9); WHITE BLOOD COUNT 2.3 K/mm3 (4.0-10.0)
[2024-02-11 12:10] LABS: ALBUMIN 3.7 g/dl (3.4-5.0); BLOOD UREA NITROGEN 9.6 mg/dL (7-18); CALCIUM 8.7 mg/dL (8.5-10.1); MAGNESIUM 2.4 mg/dL (1.8-2.4); POTASSIUM 3.6 mmol/L (3.5-5.1)
[2024-02-11 12:23] LABS: BILIRUBIN,TOTAL 0.5 mg/dL (0.2-1); CREATININE 0.8 mg/dL (0.55-1.3); TOT PROT 6.5 g/dl (6.4-8.2)
[2024-02-11] MEDS: DEXAMETHASONE INJECTION 10 MG in SODIUM CHLORIDE 50 ML IVPB ONE (12:40)
[2024-02-11] MEDS: FOSAPREPITANT DIMEGLUMINE 150 MG in SODIUM CHLORIDE 145 ML IVPB ONE (13:01)
[2024-02-11] MEDS: PALONOSETRON HCL 0.25 MG/5 ML VIAL IVPUSH ONE (13:04)
[2024-02-11] MEDS: ATROPINE SO4 0.4 MG/1 ML VIAL IVPUSH ONE (13:47)
[2024-02-11] MEDS: LEUCOVORIN IVPB ONE (13:47)
[2024-02-11] MEDS: WATER IVPB ONE ×2 (13:47→13:50)
[2024-02-11] MEDS: DEXTROSE 5% IVPB ONE ×2 (13:47→13:50)
[2024-02-11] MEDS: IRINOTECAN HCL IVPB ONE (13:50)
[2024-02-11] MEDS: FLUOROURACIL 500 MG/10 ML VIAL IVPUSH ONE (16:12)
[2024-02-11] MEDS: FLUOROURACIL CP ONE (16:13)
[2024-02-11] MEDS: SODIUM CHLORIDE CP ONE (16:13)
[2024-02-11] MEDS: PORTA CATH FLUSH 10 ML IVPUSH PRN (16:13)
[2024-02-11 16:27] VITALS: BP 134/77; PULSE 69; RESP 20; TEMP 98
[2024-02-11] MEDS: OLANZapine 10 MG TABLET PO ONE (16:35)
== END 2024-02-11 16:34 | disposition home or self-care (01) ==
LOC: JONCCHEMO 10:52 → J7W 10:56 → JONCCHEMO 16:34
PROVIDERS: ATTEND Internal Medicine Hematology & Oncology
DX: Z51.11 Encounter for antineoplastic chemotherapy (principal); C20 Malignant neoplasm of rectum
CPT/HCPCS: 36415; 80053; 82378; 83735; 85025; 96367; 96368; 96375; 96411; 96413; G0498; J1100; J1453; J9190; J9206

== ENCOUNTER 2024-02-13 13:41 | Day surgery (SDC) | payer OTHER ==
[2024-02-13] MEDS: DEXAMETHASONE SODIUM PHOSPHATE 4 MG in DEXTROSE 5%-WATER - 50 ML IVPB ONE (13:52)
[2024-02-13] MEDS: DEXTROSE 5%-NORMAL SALINE 500 ML IV ONE (13:52)
[2024-02-13] MEDS: PORTA CATH FLUSH 10 ML IVPUSH PRN (16:00)
[2024-02-13 18:51] VITALS: BP 115/70; PULSE 70; RESP 20; TEMP 97.9
[2024-02-13] MEDS: LORazepam 2 MG/ML SDV VIAL IVPUSH ONE (19:02)
== END 2024-02-13 16:20 | disposition home or self-care (01) ==
LOC: JONCCHEMO 13:41
PROVIDERS: ATTEND Internal Medicine Hematology & Oncology
PROC: 3E0437Z Introduction of Electrolytic and Water Balance Substance into Central Vein, Percutaneous Approach (ICD-10-PCS; principal; 2024-02-13)
PROC: 3E0433Z Introduction of Anti-inflammatory into Central Vein, Percutaneous Approach (ICD-10-PCS; 2024-02-13)
DX: C20 Malignant neoplasm of rectum (principal); C78.00 Secondary malignant neoplasm of unspecified lung; Z76.89 Persons encountering health services in other specified circumstances
CPT/HCPCS: 96360; 96361; 96374

== ENCOUNTER 2024-02-25 08:40 | Day surgery (SDC) | payer OTHER ==
[~2024-02-25 08:40] MED LIST changes: +DEXTROSE 5% IVPB ONE; +IRINOTECAN HCL IVPB ONE; -LORazepam 2 MG/ML SDV VIAL IVPUSH ONE; +WATER IVPB ONE
[2024-02-25] MEDS: SODIUM CHLORIDE 250 ML IV ONE (09:26)
[2024-02-25 09:32] LABS: BASO % 0.9 % (0-2.0); EOS % 2.4 % (0-4.5); HEMATOCRIT 37.4 % (35.4-49); HEMOGLOBIN 13.2 GM/dL (11.7-16.9); LYMPH % 16.5 % (8-40); MCH 32.4 pg (25.7-33.7); MCHC 35.2 g/dl (32.0-35.9); NEUT % 73.2 % (42.8-82.8); PLATELET COUNT 107 10^3/uL (134-434); RBC 4.07 M/mm3 (4.00-5.60)
[2024-02-25] MEDS: SCOPOLAMINE HYDROBROMIDE 1 PATCH PATCH.TD72 TD SCH (09:37)
[2024-02-25 09:47] LABS: POTASSIUM 3.6 mmol/L (3.5-5.1)
[2024-02-25 09:51] LABS: ALBUMIN 3.7 g/dl (3.4-5.0); BLOOD UREA NITROGEN 10.6 mg/dL (7-18); CALCIUM 8.4 mg/dL (8.5-10.1); MAGNESIUM 2.5 mg/dL (1.8-2.4)
[2024-02-25 09:54] LABS: CREATININE 0.8 mg/dL (0.55-1.3)
[2024-02-25 09:55] LABS: BILIRUBIN,TOTAL 0.5 mg/dL (0.2-1)
[2024-02-25 09:57] LABS: TOT PROT 6.3 g/dl (6.4-8.2)
[2024-02-25] MEDS: FOSAPREPITANT DIMEGLUMINE 150 MG in SODIUM CHLORIDE 145 ML IVPB ONE (10:29)
[2024-02-25] MEDS: PALONOSETRON HCL 0.25 MG/5 ML VIAL IVPUSH ONE (11:35)
[2024-02-25] MEDS: DEXAMETHASONE INJECTION 10 MG in SODIUM CHLORIDE 50 ML IVPB ONE (11:35)
[2024-02-25] MEDS: ATROPINE SO4 0.4 MG/1 ML VIAL IVPUSH ONE (11:58)
[2024-02-25] MEDS: WATER IVPB ONE ×2 (11:59→12:02)
[2024-02-25] MEDS: DEXTROSE 5% IVPB ONE ×2 (11:59→12:02)
[2024-02-25] MEDS: LEUCOVORIN IVPB ONE (11:59)
[2024-02-25] MEDS: IRINOTECAN HCL IVPB ONE (12:02)
[2024-02-25] MEDS ORDERED: INSULIN ASPART SLIDING SCALE (NOVOLOG) 1 VIAL SQ ONE (12:38)
[2024-02-25] MEDS: INSULIN (NOVOLOG) ASPART 100 UNITS/ML 10ML VIAL SQ ONE (12:40)
[2024-02-25] MEDS: FLUOROURACIL 500 MG/10 ML VIAL IVPUSH ONE (14:12)
[2024-02-25] MEDS: SODIUM CHLORIDE CP ONE (14:12)
[2024-02-25] MEDS: FLUOROURACIL CP ONE (14:12)
[2024-02-25] MEDS: CYANOCOBALAMIN (VITAMIN B-12) 1000 MCG/1 ML VIAL IM ONE (14:25)
[2024-02-25 16:25] VITALS: BP 131/74; PULSE 83; RESP 20; TEMP 98
== END 2024-02-25 14:30 | disposition home or self-care (01) ==
LOC: JONCCHEMO 08:40
PROVIDERS: ATTEND Internal Medicine Hematology & Oncology
PROC: 3E04305 Introduction of Other Antineoplastic into Central Vein, Percutaneous Approach (ICD-10-PCS; principal; 2024-02-25)
PROC: 3E04305 Introduction of Other Antineoplastic into Central Vein, Percutaneous Approach (ICD-10-PCS; 2024-02-25)
PROC: 3E04305 Introduction of Other Antineoplastic into Central Vein, Percutaneous Approach (ICD-10-PCS; 2024-02-25)
PROC: 3E043GC Introduction of Other Therapeutic Substance into Central Vein, Percutaneous Approach (ICD-10-PCS; 2024-02-25)
PROC: 3E013GC Introduction of Other Therapeutic Substance into Subcutaneous Tissue, Percutaneous Approach (ICD-10-PCS; 2024-02-25)
DX: Z51.11 Encounter for antineoplastic chemotherapy (principal); C20 Malignant neoplasm of rectum; C78.00 Secondary malignant neoplasm of unspecified lung; E53.8 Deficiency of other specified B group vitamins
CPT/HCPCS: 36415; 80053; 82378; 82962; 83735; 85025; 86704; 87340; 87517; 96372; 96375; 96411; 96413; 96415; G0498; J1100; J1453; J9190; J9206

== ENCOUNTER 2024-02-27 11:46 | Day surgery (SDC) | payer OTHER ==
[2024-02-27] MEDS: DEXTROSE 5%-NORMAL SALINE 500 ML IV ONE (11:48)
[2024-02-27] MEDS: DEXAMETHASONE SODIUM PHOSPHATE 4 MG in SODIUM CHLORIDE 50 ML IVPB ONE (11:48)
[2024-02-27] MEDS: PORTA CATH FLUSH 10 ML IVPUSH PRN (14:00)
[2024-02-27 14:16] VITALS: BP 125/75; PULSE 67; RESP 16
[2024-02-27 14:18] VITALS: TEMP 98.3
== END 2024-02-27 14:00 | disposition home or self-care (01) ==
LOC: JONCCHEMO 11:46 → J7W 11:47 → JONCCHEMO 14:00
PROVIDERS: ATTEND Internal Medicine Hematology & Oncology
PROC: 3E0437Z Introduction of Electrolytic and Water Balance Substance into Central Vein, Percutaneous Approach (ICD-10-PCS; principal; 2024-02-27)
PROC: 3E0433Z Introduction of Anti-inflammatory into Central Vein, Percutaneous Approach (ICD-10-PCS; 2024-02-27)
DX: C20 Malignant neoplasm of rectum (principal); Z76.89 Persons encountering health services in other specified circumstances
CPT/HCPCS: 96360; 96361; 96374

== ENCOUNTER 2024-03-10 09:51 | Day surgery (SDC) | payer OTHER ==
[2024-03-10 10:19] LABS: BASO % 0.7 % (0-2.0); HEMATOCRIT 37.5 % (35.4-49); HEMOGLOBIN 12.9 GM/dL (11.7-16.9); LYMPH % 16.2 % (8-40); MCHC 34.5 g/dl (32.0-35.9); MEAN CELL VOLUME 92.9 fl (80-96); MEAN PLT VOLUME 9.8 fl (7.5-11.1); MONO % 10.2 % (3.8-10.2); NEUT % 69.9 % (42.8-82.8); PLATELET COUNT 112 10^3/uL (134-434); RBC 4.04 M/mm3 (4.00-5.60); RDW 13.6 % (11.9-15.9); WHITE BLOOD COUNT 3.2 K/mm3 (4.0-10.0)
[2024-03-10] MEDS: SODIUM CHLORIDE 250 ML IV ONE (10:27)
[2024-03-10 10:35] LABS: CHLORIDE 112 mmol/L (98-107); POTASSIUM 3.9 mmol/L (3.5-5.1); SODIUM 140 mmol/L (136-145)
[2024-03-10 10:37] LABS: CALCIUM 8.9 mg/dL (8.5-10.1)
[2024-03-10 10:38] LABS: ALBUMIN 3.7 g/dl (3.4-5.0); ANION GAP 3 mmol/L (4-13); BLOOD UREA NITROGEN 9.8 mg/dL (7-18); CO2 26 mmol/L (21-32); GLUCOSE,RANDOM 140 mg/dL (74-106); MAGNESIUM 2.4 mg/dL (1.8-2.4)
[2024-03-10 10:41] LABS: CREATININE 0.8 mg/dL (0.55-1.3); SGOT/AST 40 U/L (15-37); SGPT/ALT 75 U/L (13-61)
[2024-03-10 10:42] LABS: BILIRUBIN,TOTAL 0.4 mg/dL (0.2-1)
[2024-03-10 10:43] LABS: TOT PROT 6.4 g/dl (6.4-8.2)
[2024-03-10 10:44] LABS: ALK PHOS 127 U/L (45-117)
[2024-03-10] MEDS: FOSAPREPITANT DIMEGLUMINE 150 MG in SODIUM CHLORIDE 145 ML IVPB ONE (11:27)
[2024-03-10] MEDS: PALONOSETRON HCL 0.25 MG/5 ML VIAL IVPUSH ONE (12:10)
[2024-03-10] MEDS: DEXAMETHASONE INJECTION 10 MG in SODIUM CHLORIDE 50 ML IVPB ONE (12:15)
[2024-03-10] MEDS: ATROPINE SO4 0.4 MG/1 ML VIAL IVPUSH ONE (13:10)
[2024-03-10] MEDS: LEUCOVORIN IVPB ONE (13:12)
[2024-03-10] MEDS: WATER IVPB ONE ×2 (13:12→13:15)
[2024-03-10] MEDS: DEXTROSE 5% IVPB ONE ×2 (13:12→13:15)
[2024-03-10] MEDS: IRINOTECAN HCL IVPB ONE (13:15)
[2024-03-10] MEDS: CYANOCOBALAMIN (VITAMIN B-12) 1000 MCG/1 ML VIAL IM ONE (15:26)
[2024-03-10] MEDS: FLUOROURACIL 500 MG/10 ML VIAL IVPUSH ONE (15:29)
[2024-03-10] MEDS: FLUOROURACIL CP ONE (15:29)
[2024-03-10] MEDS: SODIUM CHLORIDE CP ONE (15:29)
[2024-03-10 17:51] VITALS: RESP 18; TEMP 98.2
[2024-03-10] MEDS ORDERED: PORTA CATH FLUSH 10 ML IVPUSH PRN (18:04)
[2024-03-10 18:05] VITALS: BP 129/78; PULSE 73
== END 2024-03-10 15:50 | disposition home or self-care (01) ==
LOC: JONCCHEMO 09:51 → J7W 10:06 → JONCCHEMO 15:50
PROVIDERS: ATTEND Internal Medicine Hematology & Oncology
PROC: 3E043GC Introduction of Other Therapeutic Substance into Central Vein, Percutaneous Approach (ICD-10-PCS; principal; 2024-03-10)
DX: C20 Malignant neoplasm of rectum (principal); C78.00 Secondary malignant neoplasm of unspecified lung
CPT/HCPCS: 36415; 80053; 82378; 83735; 85025; G0498; J1100; J1453; J9190; J9206

== ENCOUNTER 2024-03-26 11:45 | Day surgery (SDC) | payer OTHER ==
[2024-03-26] MEDS: SODIUM CHLORIDE 500 ML IV ONE (11:54)
[2024-03-26] MEDS: DEXAMETHASONE SODIUM PHOSPHATE 4 MG in DEXTROSE 5%-WATER - 50 ML IVPB ONE (12:47)
[2024-03-26] MEDS: PORTA CATH FLUSH 10 ML IVPUSH PRN (13:15)
[2024-03-26 16:27] VITALS: TEMP 97.8
[2024-03-26 16:34] VITALS: BP 112/68; PULSE 66; RESP 20
== END 2024-03-26 13:15 | disposition home or self-care (01) ==
LOC: JONCCHEMO 11:45 → J7W 14:40
PROVIDERS: ATTEND Internal Medicine Hematology & Oncology
PROC: 3E0433Z Introduction of Anti-inflammatory into Central Vein, Percutaneous Approach (ICD-10-PCS; principal; 2024-03-26)
DX: C20 Malignant neoplasm of rectum (principal); Z76.89 Persons encountering health services in other specified circumstances
CPT/HCPCS: 96374

== ENCOUNTER 2024-04-07 08:49 | Day surgery (SDC) | payer OTHER ==
[2024-04-07 09:21] LABS: BASO % 1.3 % (0-2.0); EOS % 3.3 % (0-4.5); HEMOGLOBIN 12.5 GM/dL (11.7-16.9); LYMPH % 16.6 % (8-40); MCH 31.3 pg (25.7-33.7); MCHC 33.8 g/dl (32.0-35.9); MEAN CELL VOLUME 92.6 fl (80-96); MEAN PLT VOLUME 9.4 fl (7.5-11.1); MONO % 9.3 % (3.8-10.2); NEUT % 69.5 % (42.8-82.8); PLATELET COUNT 117 10^3/uL (134-434); RDW 13.9 % (11.9-15.9); WHITE BLOOD COUNT 2.8 K/mm3 (4.0-10.0)
[2024-04-07 09:45] LABS: POTASSIUM 3.9 mmol/L (3.5-5.1)
[2024-04-07 09:46] LABS: ALBUMIN 3.6 g/dl (3.4-5.0); BLOOD UREA NITROGEN 10.2 mg/dL (7-18); CALCIUM 8.7 mg/dL (8.5-10.1); MAGNESIUM 2.4 mg/dL (1.8-2.4)
[2024-04-07] MEDS: SODIUM CHLORIDE 250 ML IV ONE (09:46)
[2024-04-07 10:20] LABS: BILIRUBIN,TOTAL 0.6 mg/dL (0.2-1); CREATININE 0.8 mg/dL (0.55-1.3); TOT PROT 6.3 g/dl (6.4-8.2)
[2024-04-07] MEDS: FOSAPREPITANT DIMEGLUMINE 150 MG in SODIUM CHLORIDE 145 ML IVPB ONE (10:27)
[2024-04-07] MEDS: DEXAMETHASONE INJECTION 10 MG in SODIUM CHLORIDE 50 ML IVPB ONE (11:40)
[2024-04-07] MEDS: PALONOSETRON HCL 0.25 MG/5 ML VIAL IVPUSH ONE (11:41)
[2024-04-07] MEDS: INSULIN (NOVOLOG) ASPART 100 UNITS/ML 10ML VIAL SQ ONE (11:41)
[2024-04-07] MEDS: LEUCOVORIN IVPB ONE (12:00)
[2024-04-07] MEDS: WATER IVPB ONE ×2 (12:00→12:03)
[2024-04-07] MEDS: ATROPINE SO4 0.4 MG/1 ML VIAL IVPUSH ONE (12:00)
[2024-04-07] MEDS: DEXTROSE 5% IVPB ONE ×2 (12:00→12:03)
[2024-04-07] MEDS: IRINOTECAN HCL IVPB ONE (12:03)
[2024-04-07] MEDS: CYANOCOBALAMIN (VITAMIN B-12) 1000 MCG/1 ML VIAL IM ONE (14:06)
[2024-04-07] MEDS: FLUOROURACIL 500 MG/10 ML VIAL IVPUSH ONE (14:10)
[2024-04-07] MEDS: SODIUM CHLORIDE CP ONE (14:10)
[2024-04-07] MEDS: FLUOROURACIL CP ONE (14:10)
[2024-04-07 15:34] VITALS: BP 124/68; PULSE 85; RESP 18; TEMP 97.3
[2024-04-07] MEDS ORDERED: PORTA CATH FLUSH 10 ML IVPUSH PRN (15:34)
== END 2024-04-07 14:25 | disposition home or self-care (01) ==
LOC: JONCCHEMO 08:49 → J7W 08:51 → JONCCHEMO 14:25
PROVIDERS: ATTEND Internal Medicine Hematology & Oncology
PROC: 3E04305 Introduction of Other Antineoplastic into Central Vein, Percutaneous Approach (ICD-10-PCS; principal; 2024-04-07)
PROC: 3E043GC Introduction of Other Therapeutic Substance into Central Vein, Percutaneous Approach (ICD-10-PCS; 2024-04-07)
PROC: 3E013GC Introduction of Other Therapeutic Substance into Subcutaneous Tissue, Percutaneous Approach (ICD-10-PCS; 2024-04-07)
PROC: 3E013GC Introduction of Other Therapeutic Substance into Subcutaneous Tissue, Percutaneous Approach (ICD-10-PCS; 2024-04-07)
DX: Z51.11 Encounter for antineoplastic chemotherapy (principal); C20 Malignant neoplasm of rectum
CPT/HCPCS: 36415; 80053; 82378; 83735; 85025; 96367; 96368; 96372; 96413; 96415; G0498; J1100; J1453; J9190; J9206

== ENCOUNTER 2024-04-09 12:10 | Day surgery (SDC) | payer OTHER ==
[2024-04-09] MEDS: DEXTROSE 5%-NORMAL SALINE 500 ML IV ONE (12:12)
[2024-04-09] MEDS: DEXAMETHASONE SODIUM PHOSPHATE 4 MG in DEXTROSE 5%-WATER - 50 ML IVPB ONE (12:13)
[2024-04-09] MEDS: PORTA CATH FLUSH 10 ML IVPUSH PRN (14:15)
[2024-04-09 16:02] VITALS: BP 124/71; PULSE 69; RESP 18; TEMP 98.5
== END 2024-04-09 14:25 | disposition home or self-care (01) ==
LOC: JONCCHEMO 12:10 → J7W 12:10 → JONCCHEMO 14:25
PROVIDERS: ATTEND Internal Medicine Hematology & Oncology
PROC: 3E0437Z Introduction of Electrolytic and Water Balance Substance into Central Vein, Percutaneous Approach (ICD-10-PCS; principal; 2024-04-09)
PROC: 3E0433Z Introduction of Anti-inflammatory into Central Vein, Percutaneous Approach (ICD-10-PCS; 2024-04-09)
DX: C20 Malignant neoplasm of rectum (principal); Z76.89 Persons encountering health services in other specified circumstances
CPT/HCPCS: 96365; 96366

== ENCOUNTER 2024-04-21 09:16 | Day surgery (SDC) | payer OTHER ==
[2024-04-21] MEDS: SODIUM CHLORIDE 250 ML IV ONE (09:52)
[2024-04-21 10:04] LABS: BASO % 1.1 % (0-2.0); EOS % 3.3 % (0-4.5); HEMATOCRIT 37.3 % (35.4-49); HEMOGLOBIN 12.5 GM/dL (11.7-16.9); LYMPH % 15.3 % (8-40); MCH 31.4 pg (25.7-33.7); MCHC 33.6 g/dl (32.0-35.9); MEAN CELL VOLUME 93.4 fl (80-96); MEAN PLT VOLUME 9.8 fl (7.5-11.1); MONO % 9.6 % (3.8-10.2); NEUT % 70.7 % (42.8-82.8); PLATELET COUNT 115 10^3/uL (134-434); RBC 3.99 M/mm3 (4.00-5.60); RDW 14.3 % (11.9-15.9)
[2024-04-21 10:31] LABS: CHLORIDE 112 mmol/L (98-107); POTASSIUM 3.7 mmol/L (3.5-5.1); SODIUM 140 mmol/L (136-145)
[2024-04-21 10:32] LABS: ALBUMIN 3.7 g/dl (3.4-5.0); ANION GAP 5 mmol/L (4-13); CALCIUM 8.5 mg/dL (8.5-10.1); CO2 23 mmol/L (21-32); GLUCOSE,RANDOM 188 mg/dL (74-106)
[2024-04-21 10:33] LABS: BLOOD UREA NITROGEN 8.9 mg/dL (7-18)
[2024-04-21 10:34] LABS: MAGNESIUM 2.4 mg/dL (1.8-2.4)
[2024-04-21 10:35] LABS: CREATININE 0.7 mg/dL (0.55-1.3); SGOT/AST 46 U/L (15-37); SGPT/ALT 83 U/L (13-61)
[2024-04-21 10:37] LABS: BILIRUBIN,TOTAL 0.6 mg/dL (0.2-1)
[2024-04-21 10:38] LABS: ALK PHOS 123 U/L (45-117)
[2024-04-21] MEDS: FOSAPREPITANT DIMEGLUMINE 150 MG in SODIUM CHLORIDE 145 ML IVPB ONE (11:09)
[2024-04-21 11:17] LABS: TOT PROT 6.3 g/dl (6.4-8.2)
[2024-04-21] MEDS: PALONOSETRON HCL 0.25 MG/5 ML VIAL IVPUSH ONE (11:50)
[2024-04-21] MEDS: DEXAMETHASONE INJECTION 10 MG in SODIUM CHLORIDE 50 ML IVPB ONE (11:54)
[2024-04-21] MEDS: WATER IVPB ONE ×2 (12:03→12:05)
[2024-04-21] MEDS: LEUCOVORIN IVPB ONE (12:03)
[2024-04-21] MEDS: DEXTROSE 5% IVPB ONE ×2 (12:03→12:05)
[2024-04-21] MEDS: ATROPINE SO4 0.4 MG/1 ML VIAL IVPUSH ONE (12:04)
[2024-04-21] MEDS: IRINOTECAN HCL IVPB ONE (12:05)
[2024-04-21] MEDS: FLUOROURACIL 500 MG/10 ML VIAL IVPUSH ONE (14:22)
[2024-04-21] MEDS: SODIUM CHLORIDE CP ONE (14:23)
[2024-04-21] MEDS: FLUOROURACIL CP ONE (14:23)
[2024-04-21] MEDS: INSULIN (NOVOLOG) ASPART 100 UNITS/ML 10ML VIAL SQ ONE (14:24)
[2024-04-21 15:03] VITALS: BP 121/73; PULSE 70; RESP 18; TEMP 98
== END 2024-04-21 14:45 | disposition home or self-care (01) ==
LOC: JONCCHEMO 09:16
PROVIDERS: ATTEND Internal Medicine Hematology & Oncology
PROC: 3E04305 Introduction of Other Antineoplastic into Central Vein, Percutaneous Approach (ICD-10-PCS; principal; 2024-04-21)
PROC: 3E043GC Introduction of Other Therapeutic Substance into Central Vein, Percutaneous Approach (ICD-10-PCS; 2024-04-21)
DX: Z51.11 Encounter for antineoplastic chemotherapy (principal); C20 Malignant neoplasm of rectum
CPT/HCPCS: 36415; 80053; 82378; 82962; 83735; 85025; 96374; 96375; 96411; 96413; 96417; G0498; J1100; J1453; J9190; J9206

== ENCOUNTER 2024-04-23 12:14 | Day surgery (SDC) | payer OTHER ==
[2024-04-23] MEDS: DEXTROSE 5%-NORMAL SALINE 500 ML IV ONE (12:21)
[2024-04-23] MEDS: DEXAMETHASONE SODIUM PHOSPHATE 4 MG in SODIUM CHLORIDE 50 ML IVPB ONE (14:19)
[2024-04-23] MEDS: PORTA CATH FLUSH 10 ML IVPUSH PRN (14:45)
[2024-04-23 14:58] VITALS: RESP 18; TEMP 98.6
[2024-04-23 15:21] VITALS: BP 113/73; PULSE 75
== END 2024-04-23 15:00 | disposition home or self-care (01) ==
LOC: JONCCHEMO 12:14 → J7W 13:45 → JONCCHEMO 15:00
PROVIDERS: ATTEND Internal Medicine Hematology & Oncology
PROC: 3E0437Z Introduction of Electrolytic and Water Balance Substance into Central Vein, Percutaneous Approach (ICD-10-PCS; principal; 2024-04-23)
PROC: 3E0433Z Introduction of Anti-inflammatory into Central Vein, Percutaneous Approach (ICD-10-PCS; 2024-04-23)
DX: C20 Malignant neoplasm of rectum (principal); Z76.89 Persons encountering health services in other specified circumstances
CPT/HCPCS: 96360; 96361; 96374

== ENCOUNTER 2024-05-19 09:30 | Day surgery (SDC) | payer OTHER ==
[~2024-05-19 09:30] MED LIST changes: +ATROPINE SO4 0.4 MG/1 ML VIAL IVPUSH ONE; +DEXAMETHASONE INJECTION 10 MG in SODIUM CHLORIDE 50 ML IVPB ONE; +FLUOROURACIL 500 MG/10 ML VIAL IVPUSH ONE; +FLUOROURACIL CP ONE; +FOSAPREPITANT DIMEGLUMINE 150 MG in SODIUM CHLORIDE 145 ML IVPB ONE; +LEUCOVORIN IVPB ONE; +PALONOSETRON HCL 0.25 MG/5 ML VIAL IVPUSH ONE; +SODIUM CHLORIDE 250 ML IV ONE; +SODIUM CHLORIDE CP ONE
[2024-05-19 10:01] LABS: ABSOLUTE IMMATURE GRANULOCYTES 0.03 x10^3/uL (0.0-0.031); BASOPHILS # 0.04 x10^3/uL (0.01-0.08); EOSINOPHIL % 3.2 % (0.8-7.0); EOSINOPHILS # 0.12 x10^3/uL (0.04-0.54); HEMATOCRIT 39.1 % (40.1-51.0); HEMOGLOBIN 13.3 g/dL (13.7-17.5); MEAN CELL VOLUME 91.8 fl (79.0-92.2); MEAN PLT VOLUME 12.7 fl (9.4-12.4); MONOCYTE # 0.39 x10^3/uL (0.30-0.82); MONOCYTE % 10.4 % (5.3-12.2); PLATELET COUNT 118 x10^3/uL (163-337); RDW 12.4 % (12.2-16.1)
[2024-05-19 10:18] LABS: CHLORIDE 107 mmol/L (98-107); POTASSIUM 4.1 mmol/L (3.5-5.1); SODIUM 138 mmol/L (136-145)
[2024-05-19 10:20] LABS: CALCIUM 8.9 mg/dL (8.5-10.1)
[2024-05-19 10:21] LABS: ANION GAP 6 mmol/L (4-13); BLOOD UREA NITROGEN 8.5 mg/dL (7-18); CO2 25 mmol/L (21-32); GLUCOSE,RANDOM 130 mg/dL (74-106); MAGNESIUM 2.4 mg/dL (1.8-2.4)
[2024-05-19 10:24] LABS: CREATININE 0.7 mg/dL (0.55-1.3); SGOT/AST 42 U/L (15-37); SGPT/ALT 83 U/L (13-61)
[2024-05-19 10:25] LABS: BILIRUBIN,TOTAL 0.4 mg/dL (0.2-1); TOT PROT 6.8 g/dl (6.4-8.2)
[2024-05-19 10:27] LABS: ALK PHOS 132 U/L (45-117)
[2024-05-19] MEDS: SODIUM CHLORIDE 250 ML IV ONE (11:05)
[2024-05-19] MEDS: PALONOSETRON HCL 0.25 MG/5 ML VIAL IVPUSH ONE (11:36)
[2024-05-19] MEDS: FOSAPREPITANT DIMEGLUMINE 150 MG in SODIUM CHLORIDE 145 ML IVPB ONE (11:36)
[2024-05-19] MEDS: DEXAMETHASONE INJECTION 10 MG in SODIUM CHLORIDE 50 ML IVPB ONE (12:16)
[2024-05-19] MEDS: SODIUM CHLORIDE IV ONE (12:33)
[2024-05-19] MEDS: BEVACIZUMAB IV ONE (12:33)
[2024-05-19 12:48] VITALS: RESP 18; TEMP 97.7
[2024-05-19] MEDS: ATROPINE SO4 0.4 MG/1 ML VIAL IVPUSH ONE (14:06)
[2024-05-19] MEDS: LEUCOVORIN IVPB ONE (14:08)
[2024-05-19] MEDS: DEXTROSE 5% IVPB ONE ×2 (14:08)
[2024-05-19] MEDS: IRINOTECAN HCL IVPB ONE (14:08)
[2024-05-19] MEDS: WATER IVPB ONE ×2 (14:08)
[2024-05-19] MEDS: FLUOROURACIL 500 MG/10 ML VIAL IVPUSH ONE (16:36)
[2024-05-19] MEDS: FLUOROURACIL CP ONE (16:36)
[2024-05-19] MEDS: SODIUM CHLORIDE CP ONE (16:36)
[2024-05-19 16:46] VITALS: BP 139/76; PULSE 71
== END 2024-05-19 17:04 | disposition home or self-care (01) ==
LOC: JONCCHEMO 09:30
PROVIDERS: ATTEND Internal Medicine Hematology & Oncology
PROC: 3E00X05 Introduction of Other Antineoplastic into Skin and Mucous Membranes, External Approach (ICD-10-PCS; principal; 2024-05-19)
DX: Z51.11 Encounter for antineoplastic chemotherapy (principal); C20 Malignant neoplasm of rectum
CPT/HCPCS: 36415; 80053; 82378; 83735; 85025; 96367; 96368; 96375; 96413; 96417; G0498; J1100; J1453; J9035; J9190; J9206

== ENCOUNTER 2024-05-21 14:53 | Day surgery (SDC) | payer OTHER ==
[2024-05-21] MEDS: PORTA CATH FLUSH 10 ML IVPUSH PRN (14:57)
[2024-05-21] MEDS: DEXTROSE 5%-NORMAL SALINE 500 ML IV ONE (14:58)
[2024-05-21] MEDS: DEXAMETHASONE SODIUM PHOSPHATE 4 MG in DEXTROSE 5%-WATER - 50 ML IVPB ONE (14:58)
[2024-05-21 15:13] VITALS: BP 140/75; PULSE 63; RESP 18; TEMP 97.5
[2024-05-21] MEDS ORDERED: PORTA CATH FLUSH 10 ML IVPUSH PRN (17:01)
== END 2024-05-21 17:00 | disposition home or self-care (01) ==
LOC: JONCCHEMO 14:53 → J7W 14:54 → JONCCHEMO 17:00
PROVIDERS: ATTEND Internal Medicine Hematology & Oncology
PROC: 3E043GC Introduction of Other Therapeutic Substance into Central Vein, Percutaneous Approach (ICD-10-PCS; principal; 2024-05-21)
DX: C20 Malignant neoplasm of rectum (principal)
CPT/HCPCS: 82962; 96365; 96366; 96367

== ENCOUNTER 2024-06-04 13:30 | Day surgery (SDC) | payer OTHER ==
[2024-06-04] MEDS: SODIUM CHLORIDE 500 ML IV ONE (13:48)
[2024-06-04] MEDS: PROCHLORPERAZINE INJECTION 10 MG in SODIUM CHLORIDE 50 ML IVPB ONE (13:48)
[2024-06-04 16:16] VITALS: BP 118/73; PULSE 76; RESP 16; TEMP 98.7
[2024-06-04] MEDS: PORTA CATH FLUSH 10 ML IVPUSH PRN (16:40)
== END 2024-06-04 16:40 | disposition home or self-care (01) ==
LOC: JONCCHEMO 13:30
PROVIDERS: ATTEND Internal Medicine Hematology & Oncology
PROC: 3E0437Z Introduction of Electrolytic and Water Balance Substance into Central Vein, Percutaneous Approach (ICD-10-PCS; principal; 2024-06-04)
PROC: 3E043GC Introduction of Other Therapeutic Substance into Central Vein, Percutaneous Approach (ICD-10-PCS; 2024-06-04)
DX: C20 Malignant neoplasm of rectum (principal); Z76.89 Persons encountering health services in other specified circumstances
CPT/HCPCS: 96365; 96366; 96375

== ENCOUNTER 2024-06-18 12:40 | Day surgery (SDC) | payer OTHER ==
[2024-06-18] MEDS: PROCHLORPERAZINE INJECTION 10 MG in SODIUM CHLORIDE 50 ML IVPB ONE (12:46)
[2024-06-18] MEDS: SODIUM CHLORIDE 500 ML IV ONE (12:47)
[2024-06-18 13:41] VITALS: TEMP 98.5
[2024-06-18] MEDS: PORTA CATH FLUSH 10 ML IVPUSH PRN (14:47)
[2024-06-18 15:03] VITALS: BP 128/77; PULSE 74; RESP 18
== END 2024-06-18 15:00 | disposition home or self-care (01) ==
LOC: JONCCHEMO 12:40
PROVIDERS: ATTEND Internal Medicine Hematology & Oncology
PROC: 3E043GC Introduction of Other Therapeutic Substance into Central Vein, Percutaneous Approach (ICD-10-PCS; principal; 2024-06-18)
DX: C20 Malignant neoplasm of rectum (principal)
CPT/HCPCS: 96365; 96366; 96375

== ENCOUNTER 2024-06-30 10:30 | Day surgery (SDC) | payer OTHER ==
[2024-06-30 11:09] VITALS: PULSE 76; RESP 18; TEMP 97.8
[2024-06-30] MEDS: SODIUM CHLORIDE 250 ML IV ONE (11:13)
[2024-06-30 11:21] LABS: ABSOLUTE IMMATURE GRANULOCYTES 0.01 x10^3/uL (0.0-0.031); BASOPHILS # 0.03 x10^3/uL (0.01-0.08); EOSINOPHIL % 2.6 % (0.8-7.0); HEMATOCRIT 40.1 % (40.1-51.0); HEMOGLOBIN 13.6 g/dL (13.7-17.5); MCHC 33.9 g/dl (32.3-36.5); MEAN CELL VOLUME 93.9 fl (79.0-92.2); MEAN PLT VOLUME 12.1 fl (9.4-12.4); MONOCYTE # 0.52 x10^3/uL (0.30-0.82); MONOCYTE % 13.4 % (5.3-12.2); PLATELET COUNT 106 x10^3/uL (163-337); RDW 13.1 % (12.2-16.1)
[2024-06-30 11:31] LABS: POTASSIUM 3.9 mmol/L (3.5-5.1)
[2024-06-30 11:34] LABS: ALBUMIN 3.7 g/dl (3.4-5.0); BLOOD UREA NITROGEN 8.8 mg/dL (7-18); MAGNESIUM 2.6 mg/dL (1.8-2.4)
[2024-06-30 11:36] LABS: CREATININE 0.8 mg/dL (0.55-1.3)
[2024-06-30 11:39] LABS: BILIRUBIN,TOTAL 0.4 mg/dL (0.2-1); TOT PROT 6.4 g/dl (6.4-8.2)
[2024-06-30] MEDS: FAMOTIDINE 20 MG/50 ML IVPB 20 MG/50 ML MG IVPB ONE (11:44)
[2024-06-30] MEDS: PALONOSETRON HCL 0.25 MG/5 ML VIAL IVPUSH ONE (11:48)
[2024-06-30] MEDS: DEXAMETHASONE SODIUM PHOSPHATE 12 MG, DIPHENHYDRAMINE 25 MG in SODIUM CHLORIDE 100 ML IVPB ONE (12:17)
[2024-06-30] MEDS: BEVACIZUMAB IV ONE (12:57)
[2024-06-30] MEDS: SODIUM CHLORIDE IV ONE (12:57)
[2024-06-30] MEDS: DEXTROSE 5% IVPB ONE (13:44)
[2024-06-30] MEDS: LEUCOVORIN IVPB ONE (13:44)
[2024-06-30] MEDS: WATER IVPB ONE (13:44)
[2024-06-30] MEDS: FLUOROURACIL 2,500 MG/50 ML VIAL IVPUSH ONE (16:13)
[2024-06-30] MEDS: FLUOROURACIL 4,550 MG in SODIUM CHLORIDE 1 ML CP ONE (16:13)
[2024-06-30 16:33] VITALS: BP 154/80
[2024-06-30] MEDS ORDERED: PORTA CATH FLUSH 10 ML IVPUSH PRN (16:33)
== END 2024-06-30 16:49 | disposition home or self-care (01) ==
LOC: JONCCHEMO 10:30
PROVIDERS: ATTEND Internal Medicine Hematology & Oncology
DX: Z51.11 Encounter for antineoplastic chemotherapy (principal); C20 Malignant neoplasm of rectum
CPT/HCPCS: 36415; 80053; 83735; 84156; 85025; 96367; 96368; 96375; 96413; 96415; 96417; G0498; J9035; J9263

== ENCOUNTER 2024-07-02 13:40 | Day surgery (SDC) | payer OTHER ==
[2024-07-02] MEDS: PROCHLORPERAZINE INJECTION 10 MG in SODIUM CHLORIDE 50 ML IVPB ONE (13:50)
[2024-07-02] MEDS: SODIUM CHLORIDE 500 ML IV ONE (13:50)
[2024-07-02 14:13] VITALS: RESP 18; TEMP 98.3
[2024-07-02] MEDS: PORTA CATH FLUSH 10 ML IVPUSH PRN (16:23)
[2024-07-02 16:36] VITALS: BP 128/84; PULSE 78
== END 2024-07-02 16:54 | disposition home or self-care (01) ==
LOC: JONCCHEMO 13:40 → J7W 13:40 → JONCCHEMO 16:54
PROVIDERS: ATTEND Internal Medicine Hematology & Oncology
PROC: 3E043GC Introduction of Other Therapeutic Substance into Central Vein, Percutaneous Approach (ICD-10-PCS; principal; 2024-07-02)
DX: C20 Malignant neoplasm of rectum (principal); Z76.89 Persons encountering health services in other specified circumstances
CPT/HCPCS: 96374

== ENCOUNTER 2024-07-14 10:03 | Day surgery (SDC) | payer OTHER ==
[2024-07-14 10:26] LABS: HEMATOCRIT 40.1 % (40.1-51.0); RDW 13.2 % (12.2-16.1)
[2024-07-14 10:28] LABS: ABSOLUTE IMMATURE GRANULOCYTES 0.02 x10^3/uL (0.0-0.031); BASOPHILS # 0.03 x10^3/uL (0.01-0.08); EOSINOPHIL % 2.6 % (0.8-7.0); EOSINOPHILS # 0.11 x10^3/uL (0.04-0.54); HEMOGLOBIN 13.7 g/dL (13.7-17.5); MCHC 34.2 g/dl (32.3-36.5); MEAN PLT VOLUME 11.6 fl (9.4-12.4); MONOCYTE # 0.43 x10^3/uL (0.30-0.82); MONOCYTE % 10.2 % (5.3-12.2); PLATELET COUNT 95 x10^3/uL (163-337)
[2024-07-14 10:41] LABS: POTASSIUM 3.8 mmol/L (3.5-5.1)
[2024-07-14 10:42] LABS: BLOOD UREA NITROGEN 8.4 mg/dL (7-18); CALCIUM 9.2 mg/dL (8.5-10.1)
[2024-07-14 10:43] LABS: ALBUMIN 3.7 g/dl (3.4-5.0); MAGNESIUM 2.4 mg/dL (1.8-2.4)
[2024-07-14] MEDS: SODIUM CHLORIDE 250 ML IV ONE (10:43)
[2024-07-14 10:46] LABS: CREATININE 0.8 mg/dL (0.55-1.3)
[2024-07-14 10:48] LABS: BILIRUBIN,TOTAL 0.5 mg/dL (0.2-1)
[2024-07-14 10:49] LABS: TOT PROT 6.4 g/dl (6.4-8.2)
[2024-07-14] MEDS: DEXAMETHASONE SODIUM PHOSPHATE 12 MG, DIPHENHYDRAMINE 25 MG in SODIUM CHLORIDE 100 ML IVPB ONE (11:17)
[2024-07-14] MEDS: FAMOTIDINE 20 MG/50 ML IVPB 20 MG/50 ML MG IVPB ONE (11:56)
[2024-07-14] MEDS: PALONOSETRON HCL 0.25 MG/5 ML VIAL IVPUSH ONE (11:56)
[2024-07-14] MEDS: BEVACIZUMAB IV ONE (12:56)
[2024-07-14] MEDS: SODIUM CHLORIDE IV ONE (12:56)
[2024-07-14] MEDS: INSULIN (NOVOLOG) ASPART 100 UNITS/ML 10ML VIAL SQ ONE (13:04)
[2024-07-14] MEDS: LEUCOVORIN IVPB ONE (13:43)
[2024-07-14] MEDS: DEXTROSE 5% IVPB ONE (13:43)
[2024-07-14] MEDS: WATER IVPB ONE (13:43)
[2024-07-14] MEDS ORDERED: INSULIN ASPART SLIDING SCALE (NOVOLOG) 1 VIAL SQ ONE (13:53)
[2024-07-14 16:38] VITALS: TEMP 98.3
[2024-07-14] MEDS ORDERED: PORTA CATH FLUSH 10 ML IVPUSH PRN (16:43)
[2024-07-14] MEDS: FLUOROURACIL CP ONE (16:53)
[2024-07-14] MEDS: FLUOROURACIL 2,500 MG/50 ML VIAL IVPUSH ONE (16:53)
[2024-07-14] MEDS: SODIUM CHLORIDE CP ONE (16:53)
[2024-07-14 17:08] VITALS: BP 135/75; PULSE 75; RESP 18
== END 2024-07-14 17:08 | disposition home or self-care (01) ==
LOC: JONCCHEMO 10:03 → J7W 10:05 → JONCCHEMO 17:08
PROVIDERS: ATTEND Internal Medicine Hematology & Oncology
DX: Z51.11 Encounter for antineoplastic chemotherapy (principal); C20 Malignant neoplasm of rectum
CPT/HCPCS: 36415; 80053; 83735; 84156; 85025; 96367; 96368; 96375; 96411; 96413; 96415; 96417; G0498; J9035; J9263

== ENCOUNTER 2024-07-16 16:50 | Day surgery (SDC) | payer OTHER ==
[2024-07-16] MEDS: SODIUM CHLORIDE 500 ML IV ONE (14:32)
[2024-07-16] MEDS: PROCHLORPERAZINE INJECTION 10 MG in SODIUM CHLORIDE 50 ML IVPB ONE (16:33)
[2024-07-16] MEDS: DEXAMETHASONE SOD PHOSPHATE 10 MG/1 ML VIAL IVPB ONE (17:19)
[2024-07-16] MEDS: ONDANSETRON 4 MG/2 ML VIAL IVPB ONE (17:19)
[2024-07-16] MEDS: PORTA CATH FLUSH 10 ML IVPUSH PRN (17:50)
[2024-07-16 18:42] VITALS: BP 140/86; PULSE 100; RESP 20; TEMP 98.4
== END 2024-07-16 17:55 | disposition home or self-care (01) ==
LOC: J7W 16:50 → JONCCHEMO 16:50
PROVIDERS: ATTEND Internal Medicine Hematology & Oncology
PROC: 3E0437Z Introduction of Electrolytic and Water Balance Substance into Central Vein, Percutaneous Approach (ICD-10-PCS; principal; 2024-07-16)
PROC: 3E043GC Introduction of Other Therapeutic Substance into Central Vein, Percutaneous Approach (ICD-10-PCS; 2024-07-16)
DX: C20 Malignant neoplasm of rectum (principal); Z76.89 Persons encountering health services in other specified circumstances
CPT/HCPCS: 96361; 96374; 96375; J1100

== ENCOUNTER 2024-07-29 09:57 | Day surgery (SDC) | payer OTHER ==
[~2024-07-29 09:57] MED LIST changes: -ATROPINE SO4 0.4 MG/1 ML VIAL IVPUSH ONE; +BEVACIZUMAB IV ONE; -DEXAMETHASONE INJECTION 10 MG in SODIUM CHLORIDE 50 ML IVPB ONE; +DEXAMETHASONE SODIUM PHOSPHATE 12 MG, DIPHENHYDRAMINE 25 MG in SODIUM CHLORIDE 100 ML IVPB ONE; +FAMOTIDINE 20 MG/50 ML IVPB 20 MG/50 ML MG IVPB ONE; +FLUOROURACIL 2,500 MG/50 ML VIAL IVPUSH ONE; -FLUOROURACIL 500 MG/10 ML VIAL IVPUSH ONE; -FOSAPREPITANT DIMEGLUMINE 150 MG in SODIUM CHLORIDE 145 ML IVPB ONE; -IRINOTECAN HCL IVPB ONE; +SODIUM CHLORIDE IV ONE
[2024-07-29 10:45] LABS: ABSOLUTE IMMATURE GRANULOCYTES 0.01 x10^3/uL (0.0-0.031); BASOPHILS # 0.04 x10^3/uL (0.01-0.08); EOSINOPHIL % 3.1 % (0.8-7.0); HEMATOCRIT 40.6 % (40.1-51.0); HEMOGLOBIN 13.9 g/dL (13.7-17.5); MCHC 34.2 g/dl (32.3-36.5); MEAN CELL VOLUME 92.5 fl (79.0-92.2); MEAN PLT VOLUME 12.2 fl (9.4-12.4); MONOCYTE # 0.39 x10^3/uL (0.30-0.82); MONOCYTE % 12.3 % (5.3-12.2); PLATELET COUNT 97 x10^3/uL (163-337); RDW 13.3 % (12.2-16.1)
[2024-07-29] MEDS: SODIUM CHLORIDE 250 ML IV ONE (11:00)
[2024-07-29 11:08] LABS: CHLORIDE 109 mmol/L (98-107); POTASSIUM 3.9 mmol/L (3.5-5.1); SODIUM 140 mmol/L (136-145)
[2024-07-29 11:10] LABS: ALBUMIN 3.8 g/dl (3.4-5.0); ANION GAP 7 mmol/L (4-13); CO2 24 mmol/L (21-32)
[2024-07-29 11:11] LABS: BLOOD UREA NITROGEN 9.1 mg/dL (7-18); MAGNESIUM 2.4 mg/dL (1.8-2.4)
[2024-07-29 11:14] LABS: CREATININE 0.7 mg/dL (0.55-1.3); SGOT/AST 47 U/L (15-37); SGPT/ALT 81 U/L (13-61)
[2024-07-29 11:15] LABS: BILIRUBIN,TOTAL 0.5 mg/dL (0.2-1)
[2024-07-29 11:16] LABS: ALK PHOS 135 U/L (45-117)
[2024-07-29] MEDS: FAMOTIDINE 20 MG/50 ML IVPB 20 MG/50 ML MG IVPB ONE (11:39)
[2024-07-29 12:00] LABS: GLUCOSE,RANDOM 198 mg/dL (74-106); TOT PROT 6.7 g/dl (6.4-8.2)
[2024-07-29] MEDS: PALONOSETRON HCL 0.25 MG/5 ML VIAL IVPUSH ONE (12:05)
[2024-07-29] MEDS: DEXAMETHASONE SODIUM PHOSPHATE 12 MG, DIPHENHYDRAMINE 25 MG in SODIUM CHLORIDE 100 ML IVPB ONE (12:07)
[2024-07-29] MEDS: SODIUM CHLORIDE IV ONE (12:49)
[2024-07-29] MEDS: BEVACIZUMAB IV ONE (12:49)
[2024-07-29] MEDS: LEUCOVORIN IVPB ONE (13:29)
[2024-07-29] MEDS: DEXTROSE 5% IVPB ONE (13:29)
[2024-07-29] MEDS: WATER IVPB ONE (13:29)
[2024-07-29] MEDS: SODIUM CHLORIDE CP ONE (16:03)
[2024-07-29] MEDS: FLUOROURACIL CP ONE (16:03)
[2024-07-29] MEDS: FLUOROURACIL 2,500 MG/50 ML VIAL IVPUSH ONE (16:04)
[2024-07-29 16:37] VITALS: BP 117/76; PULSE 91; RESP 20; TEMP 98.2
== END 2024-07-29 16:44 | disposition home or self-care (01) ==
LOC: JONCCHEMO 09:57
PROVIDERS: ATTEND Internal Medicine Hematology & Oncology
PROC: 3E04305 Introduction of Other Antineoplastic into Central Vein, Percutaneous Approach (ICD-10-PCS; principal; 2024-07-29)
PROC: 3E043GC Introduction of Other Therapeutic Substance into Central Vein, Percutaneous Approach (ICD-10-PCS; 2024-07-29)
DX: Z51.11 Encounter for antineoplastic chemotherapy (principal); C20 Malignant neoplasm of rectum
CPT/HCPCS: 36415; 80053; 83735; 84156; 85025; G0498; J9035; J9263

== ENCOUNTER 2024-07-31 13:34 | Day surgery (SDC) | payer OTHER ==
[2024-07-31] MEDS: SODIUM CHLORIDE 500 ML IV ONE (13:49)
[2024-07-31] MEDS: ONDANSETRON INJECTION 8 MG in SODIUM CHLORIDE 50 ML IVPB ONE (13:49)
[2024-07-31] MEDS: DEXAMETHASONE SOD PHOSPHATE 4 MG/1 ML VIAL IVPB ONE (15:20)
[2024-07-31] MEDS: PORTA CATH FLUSH 10 ML IVPUSH PRN (16:30)
[2024-07-31 17:06] VITALS: BP 145/87; PULSE 81; RESP 16; TEMP 98.4
== END 2024-07-31 17:24 | disposition home or self-care (01) ==
LOC: JONCCHEMO 13:34 → J7W 13:51 → JONCCHEMO 17:24
PROVIDERS: ATTEND Internal Medicine Hematology & Oncology
PROC: 3E043GC Introduction of Other Therapeutic Substance into Central Vein, Percutaneous Approach (ICD-10-PCS; principal; 2024-07-31)
DX: C20 Malignant neoplasm of rectum (principal); Z76.89 Persons encountering health services in other specified circumstances

== ENCOUNTER 2024-08-11 09:47 | Day surgery (SDC) | payer OTHER ==
[2024-08-11] MEDS: SODIUM CHLORIDE 250 ML IV ONE (10:30)
[2024-08-11 10:47] LABS: ABSOLUTE IMMATURE GRANULOCYTES 0.02 x10^3/uL (0.0-0.031); BASOPHILS # 0.03 x10^3/uL (0.01-0.08); EOSINOPHIL % 2.8 % (0.8-7.0); EOSINOPHILS # 0.12 x10^3/uL (0.04-0.54); MCHC 33.6 g/dl (32.3-36.5); MEAN CELL VOLUME 94.1 fl (79.0-92.2); MEAN PLT VOLUME 11.7 fl (9.4-12.4); MONOCYTE # 0.40 x10^3/uL (0.30-0.82); MONOCYTE % 9.3 % (5.3-12.2); RDW 13.6 % (12.2-16.1)
[2024-08-11 11:18] LABS: CO2 22 mmol/L (21-32); GLUCOSE,RANDOM 219 mg/dL (74-106)
[2024-08-11 11:21] LABS: CREATININE 0.8 mg/dL (0.55-1.3); SGOT/AST 40 U/L (15-37); SGPT/ALT 68 U/L (13-61)
[2024-08-11 11:23] LABS: TOT PROT 6.5 g/dl (6.4-8.2)
[2024-08-11 11:24] LABS: ALK PHOS 124 U/L (45-117)
[2024-08-11] MEDS: FAMOTIDINE 20 MG/50 ML IVPB 20 MG/50 ML MG IVPB ONE (11:39)
[2024-08-11] MEDS: PALONOSETRON HCL 0.25 MG/5 ML VIAL IVPUSH ONE (12:32)
[2024-08-11] MEDS: DEXAMETHASONE SODIUM PHOSPHATE 12 MG, DIPHENHYDRAMINE 25 MG in SODIUM CHLORIDE 100 ML IVPB ONE (12:35)
[2024-08-11] MEDS: SODIUM CHLORIDE IV ONE (13:05)
[2024-08-11] MEDS: BEVACIZUMAB IV ONE (13:05)
[2024-08-11] MEDS: WATER IVPB ONE (13:38)
[2024-08-11] MEDS: DEXTROSE 5% IVPB ONE (13:38)
[2024-08-11] MEDS: LEUCOVORIN IVPB ONE (13:38)
[2024-08-11] MEDS: FLUOROURACIL 2,500 MG/50 ML VIAL IVPUSH ONE (15:57)
[2024-08-11] MEDS: FLUOROURACIL CP ONE (16:00)
[2024-08-11] MEDS: SODIUM CHLORIDE CP ONE (16:00)
[2024-08-11 18:11] VITALS: BP 127/80; PULSE 85; RESP 18; TEMP 98.6
== END 2024-08-11 16:15 | disposition home or self-care (01) ==
LOC: JONCCHEMO 09:47
PROVIDERS: ATTEND Internal Medicine Hematology & Oncology
DX: Z51.11 Encounter for antineoplastic chemotherapy (principal)
CPT/HCPCS: 36415; 80053; 82378; 83735; 84156; 85025; 96367; 96368; 96375; 96411; 96413; 96415; 96417; G0498; J9035; J9263

== ENCOUNTER 2024-08-13 13:50 | Day surgery (SDC) | payer OTHER ==
[2024-08-13] MEDS: SODIUM CHLORIDE 500 ML IV ONE (14:01)
[2024-08-13] MEDS: ONDANSETRON INJECTION 8 MG in SODIUM CHLORIDE 50 ML IVPB ONE (14:19)
[2024-08-13] MEDS: PORTA CATH FLUSH 10 ML IVPUSH PRN (16:10)
[2024-08-13 17:05] VITALS: BP 126/85; PULSE 92; RESP 20; TEMP 98.5
== END 2024-08-13 16:20 | disposition home or self-care (01) ==
LOC: JONCCHEMO 13:50 → J7W 13:51 → JONCCHEMO 16:20
PROVIDERS: ATTEND Internal Medicine Hematology & Oncology
PROC: 3E0437Z Introduction of Electrolytic and Water Balance Substance into Central Vein, Percutaneous Approach (ICD-10-PCS; principal; 2024-08-13)
DX: C20 Malignant neoplasm of rectum (principal); Z76.89 Persons encountering health services in other specified circumstances
CPT/HCPCS: 96360; 96374

== ENCOUNTER 2024-09-01 10:02 | Day surgery (SDC) | payer OTHER ==
[2024-09-01 10:37] LABS: ABSOLUTE IMMATURE GRANULOCYTES 0.02 x10^3/uL (0.0-0.031); BASOPHILS # 0.03 x10^3/uL (0.01-0.08); EOSINOPHIL % 4.0 % (0.8-7.0); EOSINOPHILS # 0.11 x10^3/uL (0.04-0.54); MCHC 33.3 g/dl (32.3-36.5); MEAN CELL VOLUME 96.7 fl (79.0-92.2); MEAN PLT VOLUME 13.2 fl (9.4-12.4); MONOCYTE # 0.38 x10^3/uL (0.30-0.82); MONOCYTE % 13.8 % (5.3-12.2); RDW 13.6 % (12.2-16.1)
[2024-09-01 11:04] LABS: CO2 26 mmol/L (21-32); GLUCOSE,RANDOM 216 mg/dL (74-106)
[2024-09-01 11:07] LABS: CREATININE 0.7 mg/dL (0.55-1.3); SGOT/AST 59 U/L (15-37); SGPT/ALT 92 U/L (13-61)
[2024-09-01 11:09] LABS: TOT PROT 6.6 g/dl (6.4-8.2)
[2024-09-01 11:10] LABS: ALK PHOS 110 U/L (45-117)
[2024-09-01] MEDS: SODIUM CHLORIDE 250 ML IV ONE (11:46)
[2024-09-01] MEDS: FOSAPREPITANT DIMEGLUMINE 150 MG in SODIUM CHLORIDE 145 ML IVPB ONE (11:46)
[2024-09-01] MEDS: DEXAMETHASONE SODIUM PHOSPHATE 12 MG, DIPHENHYDRAMINE 25 MG in SODIUM CHLORIDE 100 ML IVPB ONE (12:16)
[2024-09-01] MEDS: FAMOTIDINE 20 MG/50 ML IVPB 20 MG/50 ML MG IVPB ONE (12:52)
[2024-09-01] MEDS: PALONOSETRON HCL 0.25 MG/5 ML VIAL IVPUSH ONE (12:52)
[2024-09-01] MEDS: BEVACIZUMAB IV ONE (13:26)
[2024-09-01] MEDS: SODIUM CHLORIDE IV ONE (13:26)
[2024-09-01] MEDS: DEXTROSE 5% IVPB ONE (14:06)
[2024-09-01] MEDS: WATER IVPB ONE (14:06)
[2024-09-01] MEDS: LEUCOVORIN IVPB ONE (14:06)
[2024-09-01] MEDS: PORTA CATH FLUSH 10 ML IVPUSH PRN (16:25)
[2024-09-01] MEDS: FLUOROURACIL CP ONE (16:26)
[2024-09-01] MEDS: FLUOROURACIL 2,500 MG/50 ML VIAL IVPUSH ONE (16:26)
[2024-09-01] MEDS: SODIUM CHLORIDE CP ONE (16:26)
[2024-09-01 18:06] VITALS: TEMP 98.2
[2024-09-01 18:15] VITALS: BP 130/72; PULSE 65; RESP 20
== END 2024-09-01 16:30 | disposition home or self-care (01) ==
LOC: JONCCHEMO 10:02 → J7W 10:02 → JONCCHEMO 16:30
PROVIDERS: ATTEND Internal Medicine Hematology & Oncology
DX: Z51.11 Encounter for antineoplastic chemotherapy (principal); C20 Malignant neoplasm of rectum
CPT/HCPCS: 36415; 80053; 83735; 84156; 85025; G0498; J1453; J9035; J9263

== ENCOUNTER 2024-09-15 10:42 | Day surgery (SDC) | payer OTHER ==
[~2024-09-15 10:42] MED LIST changes: -BEVACIZUMAB IV ONE; -DEXAMETHASONE SODIUM PHOSPHATE 12 MG, DIPHENHYDRAMINE 25 MG in SODIUM CHLORIDE 100 ML IVPB ONE; -DEXTROSE 5% IVPB ONE; -FAMOTIDINE 20 MG/50 ML IVPB 20 MG/50 ML MG IVPB ONE; -FLUOROURACIL 2,500 MG/50 ML VIAL IVPUSH ONE; -FLUOROURACIL CP ONE; +FOSAPREPITANT DIMEGLUMINE 150 MG in SODIUM CHLORIDE 145 ML IVPB ONE; -LEUCOVORIN IVPB ONE; -PALONOSETRON HCL 0.25 MG/5 ML VIAL IVPUSH ONE; -SODIUM CHLORIDE 250 ML IV ONE; -SODIUM CHLORIDE CP ONE; -SODIUM CHLORIDE IV ONE; -WATER IVPB ONE
[2024-09-15 11:16] LABS: ABSOLUTE IMMATURE GRANULOCYTES 0.01 x10^3/uL (0.0-0.031); BASOPHILS # 0.03 x10^3/uL (0.01-0.08); RDW 13.2 % (12.2-16.1)
[2024-09-15 11:18] LABS: EOSINOPHIL % 2.2 % (0.8-7.0); EOSINOPHILS # 0.08 x10^3/uL (0.04-0.54); IMMATURE PLATELET FRACTION # 7.30 x10^3/uL; MCHC 34.0 g/dl (32.3-36.5); MEAN CELL VOLUME 94.6 fl (79.0-92.2); MEAN PLT VOLUME 11.6 fl (9.4-12.4); MONOCYTE # 0.39 x10^3/uL (0.30-0.82); MONOCYTE % 10.5 % (5.3-12.2)
[2024-09-15 11:41] LABS: CO2 24.0 mmol/L (21-32)
[2024-09-15 11:42] LABS: GLUCOSE,RANDOM 166.0 mg/dL (74-106)
[2024-09-15 11:44] LABS: SGOT/AST 47.0 U/L (15-37); SGPT/ALT 76.0 U/L (13-61)
[2024-09-15 11:45] LABS: CREATININE 0.7 mg/dL (0.55-1.3)
[2024-09-15 11:46] LABS: TOT PROT 6.5 g/dl (6.4-8.2)
[2024-09-15 11:47] LABS: ALK PHOS 121.0 U/L (45-117)
[2024-09-15] MEDS: SODIUM CHLORIDE 250 ML IV ONE (11:50)
[2024-09-15] MEDS: DEXAMETHASONE SODIUM PHOSPHATE 12 MG, DIPHENHYDRAMINE 25 MG in SODIUM CHLORIDE 100 ML IVPB ONE (11:50)
[2024-09-15] MEDS: PALONOSETRON HCL 0.25 MG/5 ML VIAL IVPUSH ONE (12:27)
[2024-09-15] MEDS: FAMOTIDINE 20 MG/50 ML IVPB 20 MG/50 ML MG IVPB ONE (12:28)
[2024-09-15] MEDS: BEVACIZUMAB IV ONE (12:59)
[2024-09-15] MEDS: SODIUM CHLORIDE IV ONE (12:59)
[2024-09-15] MEDS: LEUCOVORIN IVPB ONE (13:39)
[2024-09-15] MEDS: WATER IVPB ONE (13:39)
[2024-09-15] MEDS: DEXTROSE 5% IVPB ONE (13:39)
[2024-09-15] MEDS: FLUOROURACIL 2,500 MG/50 ML VIAL IVPUSH ONE (16:04)
[2024-09-15] MEDS: FLUOROURACIL 4,575 MG in SODIUM CHLORIDE 0.5 ML CP ONE (16:04)
[2024-09-15 17:45] VITALS: RESP 18; TEMP 98.7
[2024-09-15 17:51] VITALS: BP 127/78; PULSE 69
== END 2024-09-15 17:15 | disposition home or self-care (01) ==
LOC: JONCCHEMO 10:42
PROVIDERS: ATTEND Internal Medicine Hematology & Oncology
DX: Z51.11 Encounter for antineoplastic chemotherapy (principal); C20 Malignant neoplasm of rectum
CPT/HCPCS: 36415; 80053; 82378; 83735; 84156; 85025; 96367; 96368; 96375; 96413; 96415; 96417; G0498; J9035; J9263

== ENCOUNTER 2024-10-01 14:55 | Day surgery (SDC) | payer OTHER ==
[2024-10-01] MEDS: SODIUM CHLORIDE 500 ML IV ONE (15:02)
[2024-10-01] MEDS: DRONABINOL 2.5 MG CAPSULE PO ONE (15:44)
[2024-10-01 15:49] VITALS: TEMP 98.3
[2024-10-01] MEDS ORDERED: PORTA CATH FLUSH 10 ML IVPUSH PRN (15:51)
[2024-10-01 17:50] VITALS: BP 114/70; PULSE 70; RESP 20
== END 2024-10-01 15:20 | disposition home or self-care (01) ==
LOC: JONCCHEMO 14:55
PROVIDERS: ATTEND Internal Medicine Hematology & Oncology
PROC: 3E0437Z Introduction of Electrolytic and Water Balance Substance into Central Vein, Percutaneous Approach (ICD-10-PCS; principal; 2024-10-01)
DX: C20 Malignant neoplasm of rectum (principal); C78.00 Secondary malignant neoplasm of unspecified lung
CPT/HCPCS: 96365

== ENCOUNTER 2024-10-27 10:25 | Day surgery (SDC) | payer OTHER ==
[~2024-10-27 10:25] MED LIST changes: -FOSAPREPITANT DIMEGLUMINE 150 MG in SODIUM CHLORIDE 145 ML IVPB ONE; +PALONOSETRON HCL 0.25 MG/5 ML VIAL IVPUSH ONE
[2024-10-27 11:03] LABS: ABSOLUTE IMMATURE GRANULOCYTES 0.02 x10^3/uL (0.0-0.031); BASOPHILS # 0.03 x10^3/uL (0.01-0.08); EOSINOPHIL % 3.4 % (0.8-7.0); EOSINOPHILS # 0.12 x10^3/uL (0.04-0.54); MCHC 33.3 g/dl (32.3-36.5); MEAN CELL VOLUME 98.4 fl (79.0-92.2); MEAN PLT VOLUME 12.2 fl (9.4-12.4); MONOCYTE # 0.46 x10^3/uL (0.30-0.82); MONOCYTE % 12.9 % (5.3-12.2); RDW 13.4 % (12.2-16.1)
[2024-10-27 11:27] LABS: GLUCOSE,RANDOM 173 mg/dL (74-106); TOT PROT 6.3 g/dl (6.4-8.2)
[2024-10-27 11:29] LABS: CO2 23 mmol/L (21-32)
[2024-10-27 11:30] LABS: ALK PHOS 98 U/L (40-150)
[2024-10-27 11:33] LABS: CREATININE 0.52 mg/dL (0.55-1.3); SGOT/AST 57 U/L (5-34); SGPT/ALT 69 U/L (0-55)
[2024-10-27] MEDS: SODIUM CHLORIDE 250 ML IV ONE (11:40)
[2024-10-27] MEDS: FAMOTIDINE 20 MG/50 ML IVPB 20 MG/50 ML MG IVPB ONE (11:40)
[2024-10-27] MEDS: DEXAMETHASONE SODIUM PHOSPHATE 12 MG, DIPHENHYDRAMINE 25 MG in SODIUM CHLORIDE 100 ML IVPB ONE (12:09)
[2024-10-27] MEDS: PALONOSETRON HCL 0.25 MG/5 ML VIAL IVPUSH ONE (12:41)
[2024-10-27] MEDS: SODIUM CHLORIDE IV ONE (12:44)
[2024-10-27] MEDS: BEVACIZUMAB IV ONE (12:44)
[2024-10-27] MEDS: WATER IVPB ONE (13:19)
[2024-10-27] MEDS: DEXTROSE 5% IVPB ONE (13:19)
[2024-10-27] MEDS: LEUCOVORIN IVPB ONE (13:19)
[2024-10-27 14:57] VITALS: TEMP 98.3
[2024-10-27] MEDS ORDERED: PORTA CATH FLUSH 10 ML IVPUSH PRN (15:03)
[2024-10-27] MEDS: DRONABINOL 2.5 MG CAPSULE PO SCH (15:29)
[2024-10-27] MEDS: FLUOROURACIL CP ONE (15:34)
[2024-10-27] MEDS: SODIUM CHLORIDE CP ONE (15:34)
[2024-10-27] MEDS: FLUOROURACIL 2,500 MG/50 ML VIAL IVPUSH ONE (15:34)
[2024-10-27 15:46] VITALS: BP 139/76; PULSE 72; RESP 18
== END 2024-10-27 15:50 | disposition home or self-care (01) ==
LOC: JONCNONCHE 10:25
PROVIDERS: ATTEND Internal Medicine Hematology & Oncology
DX: Z51.11 Encounter for antineoplastic chemotherapy (principal); C20 Malignant neoplasm of rectum; C78.00 Secondary malignant neoplasm of unspecified lung
CPT/HCPCS: 36415; 80053; 83735; 84156; 85025; 96367; 96368; 96375; 96413; 96415; 96417; G0498; J9035; J9263

== ENCOUNTER 2024-10-29 13:15 | Day surgery (SDC) | payer OTHER ==
[2024-10-29] MEDS: SODIUM CHLORIDE 500 ML IV ONE (13:20)
[2024-10-29] MEDS: DRONABINOL 2.5 MG CAPSULE PO STA (14:56)
[2024-10-29] MEDS: PORTA CATH FLUSH 10 ML IVPUSH PRN (15:45)
[2024-10-29 16:43] VITALS: TEMP 98.4
[2024-10-29 16:45] VITALS: BP 133/69; PULSE 79; RESP 20
== END 2024-10-29 15:30 | disposition home or self-care (01) ==
LOC: JONCCHEMO 13:15
PROVIDERS: ATTEND Internal Medicine Hematology & Oncology
PROC: 3E0437Z Introduction of Electrolytic and Water Balance Substance into Central Vein, Percutaneous Approach (ICD-10-PCS; principal; 2024-10-29)
DX: C20 Malignant neoplasm of rectum (principal); C78.00 Secondary malignant neoplasm of unspecified lung
CPT/HCPCS: 96360